=== PATIENT | female | born 1960 | race African-American/Black ===

== ENCOUNTER 2017-06-11 01:39 | Emergency (ER) | payer MEDICAID ==
[~2017-06-11] VITALS: Ht 154.9 cm; Wt 98.0 kg
[~2017-06-11 01:39] MED LIST: CYCL10TA7; HYDR-519 PO; HYDR25TA; LOP25; LORA5TAB8; MECL12.584; OMEP20TA2; PRAV20TA57; RANI25TA; TRAM50TA; TRAZ-129; [UNRECOGNIZED DRUG - CODE]
[2017-06-11] MEDS ORDERED: SODIUM CHLORIDE 0.9% 1,000 ML IV ONE (05:30)
[2017-06-11] MEDS ORDERED: ONDANSETRON HCL 4MG/2ML VIAL IV ONE ×2 (05:45→08:30)
[2017-06-11] MEDS ORDERED: MORPHINE SULFATE 4 MG/ML CPJ (NOT FOR IM USE) IV ONE (05:45)
[2017-06-11 06:03] LABS: BASOPHILS % 1.2 % (0.0-2.0); EOSINOPHILS % 2.6 % (0.0-5.0); HEMATOCRIT. 38.8 % (36.0-48.0); HEMOGLOBIN. 12.7 g/dL (12.0-16.0); LYMPHOCYTES % 43.6 % (20.0-50.0); MEAN CORPUSCULAR HEMOGLOBIN 28.4 pg (28.0-32.0); MEAN CORPUSCULAR VOLUME 86.9 fL (81.0-99.0); MEAN PLATELET VOLUME 10.3 fl (7.4-10.4); MONOCYTES % 7.1 % (2.0-8.0); NEUTROPHILS % 45.5 % (40.0-76.0); PLATELET 278 x1000/uL (130-400); RED BLOOD CELL COUNT 4.46 mill/uL (4.2-5.4); RED CELL DISTRIBUTION WIDTH 14.4 % (11.6-14.6)
[2017-06-11 06:06] LABS: PROTHROMBIN TIME 10.5 sec (9.4-11.6)
[2017-06-11 06:13] LABS: CARBON DIOXIDE 28 mEq/L (21-32); CHLORIDE 107 mEq/L (98-107)
[2017-06-11] MEDS ORDERED: PIPERACILLIN/TAZOBACTAM 3.375GM/50ML PREMIX IV ONE (08:15)
[2017-06-11] MEDS ORDERED: PIPERACILLIN/TAZ 3.375G PREMIX 50 ML IV ONE (08:15)
[2017-06-11] MEDS ORDERED: KETOROLAC 30MG/ML VIAL IV ONE (08:30)
[2017-06-11] MEDS ORDERED: ONDANSETRON HCL 4MG/2ML VIAL IM ONE (08:30)
[2017-06-11] MEDS ORDERED: LORAZEPAM 2MG/ML CPJ IV ONE (09:00)
[2017-06-11 13:49] VITALS: BP 133/80
== END 2017-06-11 13:57 | disposition home or self-care (01) ==
LOC: ER 01:39
DX: M27.2 Inflammatory conditions of jaws (principal); L02.01 Cutaneous abscess of face; J32.2 Chronic ethmoidal sinusitis; R59.0 Localized enlarged lymph nodes; K21.9 Gastro-esophageal reflux disease without esophagitis; E78.00 Pure hypercholesterolemia, unspecified; I12.9 Hypertensive chronic kidney disease with stage 1 through stage 4 chronic kidney disease, or unspecified chronic kidney disease; N18.9 Chronic kidney disease, unspecified; M79.7 Fibromyalgia; Z88.3 Allergy status to other anti-infective agents; Z91.041 Radiographic dye allergy status
CPT/HCPCS: 36415; 70486; 70540; 80053; 85025; 85610; 96361; 96374; 96375; 96376; 99285; J1885; J2060; J2270; J2405; J2543; J7030

== ENCOUNTER 2017-12-02 05:29 | Emergency (ER) | payer MEDICAID ==
[~2017-12-02] VITALS: Ht 154.9 cm; Wt 104.0 kg
[2017-12-02 05:36] VITALS: BP 161/88
[2017-12-02] MEDS ORDERED: FAMOTIDINE 20MG TABLET PO STA (08:42)
[2017-12-02] MEDS ORDERED: MAGNESIUM/ALUMINUM HYDROXIDE/SIMETHICONE 30ML UDC PO STA (08:42)
[2017-12-02] MEDS ORDERED: VISCOUS LIDOCAINE 2% 15 ML UDC MM ONE (08:45)
[2017-12-02] MEDS ORDERED: HYDROCODONE/ACETAMINOPHEN 5/325MG TABLET PO ONE (09:00)
[2017-12-02 09:17] LABS: CHLORIDE 107 mEq/L (98-107)
[2017-12-02 09:19] LABS: PARTIAL THROMBOPLASTIN TIME 27.1 sec (23.4-31.0); PROTHROMBIN TIME 10.6 sec (9.4-11.6)
[2017-12-02 09:24] LABS: BASOPHILS % 0.9 % (0.0-2.0); EOSINOPHILS % 3.1 % (0.0-5.0); HEMATOCRIT. 39.3 % (36.0-48.0); LYMPHOCYTES % 44.6 % (20.0-50.0); MEAN CORPUSCULAR HEMOGLOBIN 28.8 pg (28.0-32.0); MEAN CORPUSCULAR VOLUME 87.1 fL (81.0-99.0); MEAN PLATELET VOLUME 9.7 fl (7.4-10.4); MONOCYTES % 6.3 % (2.0-8.0); NEUTROPHILS % 45.1 % (40.0-76.0); PLATELET 310 x1000/uL (130-400); RED BLOOD CELL COUNT 4.52 mill/uL (4.2-5.4); RED CELL DISTRIBUTION WIDTH 14.7 % (11.6-14.6)
== END 2017-12-02 11:41 | disposition home or self-care (01) ==
LOC: ER 05:29
DX: K29.00 Acute gastritis without bleeding (principal); K04.7 Periapical abscess without sinus; E78.00 Pure hypercholesterolemia, unspecified; I12.9 Hypertensive chronic kidney disease with stage 1 through stage 4 chronic kidney disease, or unspecified chronic kidney disease; N18.9 Chronic kidney disease, unspecified; Z88.1 Allergy status to other antibiotic agents; Z91.041 Radiographic dye allergy status
CPT/HCPCS: 36415; 71045; 80053; 83690; 84484; 85025; 85610; 85730; 93005; 99285

== ENCOUNTER 2018-09-07 19:23 | Emergency (ER) | payer MEDICAID ==
[~2018-09-07] VITALS: Ht 160 cm; Wt 108.1 kg
[~2018-09-07 19:23] MED LIST changes: -TRAZ-129; +TRAZ-212
[2018-09-07] MEDS ORDERED: SODIUM CHLORIDE 0.9% 1,000 ML IV ONE (22:25)
[2018-09-07] MEDS ORDERED: ONDANSETRON HCL 4MG/2ML INJ IV STA (22:25)
[2018-09-07] MEDS ORDERED: MORPHINE SULFATE 4 MG/ML CPJ (NOT FOR IM USE) IV STA (22:25)
[2018-09-07] MEDS ORDERED: PIPERACILLIN/TAZ 3.375G PREMIX 50 ML IV ONE (22:30)
[2018-09-07] MEDS ORDERED: VANCOMYCIN 1 G PREMIX 200 ML IV ONE (22:30)
[2018-09-07 23:07] LABS: BASOPHILS % 0.6 % (0.0-2.0); EOSINOPHILS % 1.2 % (0.0-5.0); HEMATOCRIT. 40.2 % (36.0-48.0); HEMOGLOBIN. 13.4 g/dL (12.0-16.0); LYMPHOCYTES % 45.3 % (20.0-50.0); MEAN CORPUSCULAR HEMOGLOBIN 29.4 pg (28.0-32.0); MEAN CORPUSCULAR VOLUME 88.3 fL (81.0-99.0); MEAN PLATELET VOLUME 10.3 fl (7.4-10.4); MONOCYTES % 7.5 % (2.0-8.0); NEUTROPHILS % 45.4 % (40.0-76.0); PLATELET 307 x1000/uL (130-400); RED BLOOD CELL COUNT 4.56 mill/uL (4.2-5.4); RED CELL DISTRIBUTION WIDTH 14.5 % (11.6-14.6)
[2018-09-07 23:13] LABS: CHLORIDE 106 mEq/L (98-107)
[2018-09-07 23:15] LABS: CLARITY URINE CLEAR (CLEAR); COLOR URINE YELLOW (YELLOW); KETONES URINE NEGATIVE (NEGATIVE); LEUKOCYTE ESTERASE URINE NEGATIVE (NEGATIVE); NITRITE URINE NEGATIVE (NEGATIVE); OCCULT BLOOD URINE NEGATIVE (NEGATIVE); PH URINE 6.5 (4.5-8.0); PROTEIN URINE NEGATIVE (NEGATIVE); SPECIFIC GRAVITY URINE 1.014 (1.005-1.030); UROBILINOGEN URINE 0.2 E.U./dL (0.2-1.0)
[2018-09-07 23:16] LABS: PARTIAL THROMBOPLASTIN TIME 28.7 sec (23.4-31.0); PROTHROMBIN TIME 9.8 sec (9.1-11.1)
[2018-09-08 01:45] VITALS: BP 120/55
== END 2018-09-08 01:46 | disposition home or self-care (01) ==
LOC: ER 19:23 → CANBEDREQ 09-08 01:51
DX: N30.90 Cystitis, unspecified without hematuria (principal); I11.9 Hypertensive heart disease without heart failure; I51.9 Heart disease, unspecified; R11.0 Nausea; M54.5 Low back pain; R10.9 Unspecified abdominal pain; R35.0 Frequency of micturition; E78.00 Pure hypercholesterolemia, unspecified; N28.9 Disorder of kidney and ureter, unspecified; Z86.73 Personal history of transient ischemic attack (TIA), and cerebral infarction without residual deficits; Z98.51 Tubal ligation status; Z79.899 Other long term (current) drug therapy; Z88.1 Allergy status to other antibiotic agents; Z91.041 Radiographic dye allergy status
CPT/HCPCS: 36415; 71045; 74176; 80053; 81003; 81025; 83605; 83690; 83880; 84145; 84484; 85025; 85610; 85730; 87040; 87086; 93005; 96365; 96366; 96368; 96375; 99284; J2270; J2405; J2543; J3370; J7030; Z7610

== ENCOUNTER 2018-11-24 16:22 | Emergency (ER) | payer MEDICAID ==
[~2018-11-24] VITALS: Ht 154.9 cm; Wt 82.0 kg
[~2018-11-24 16:22] MED LIST changes: -TRAZ-212; +TRAZ-251
[2018-11-24] MEDS ORDERED: KETOROLAC 30MG/ML VIAL IM ONE (17:15)
[2018-11-24] MEDS ORDERED: HYDROCODONE/ACETAMINOPHEN 5/325MG TABLET PO ONE (18:00)
[2018-11-24 18:44] VITALS: BP 179/80
== END 2018-11-24 18:45 | disposition home or self-care (01) ==
LOC: ER 16:22
DX: K03.81 Cracked tooth (principal); E78.00 Pure hypercholesterolemia, unspecified; I10 Essential (primary) hypertension; F12.10 Cannabis abuse, uncomplicated; Z79.899 Other long term (current) drug therapy; Z88.8 Allergy status to other drugs, medicaments and biological substances; Z91.041 Radiographic dye allergy status
CPT/HCPCS: 96372; 99283; J1885

== ENCOUNTER 2019-08-21 18:07 | Inpatient (IN) | payer MEDICAID ==
[~2019-08-21] VITALS: Ht 154.9 cm; Wt 81.8 kg
[~2019-08-21 18:07] MED LIST changes: +MECL-183; -MECL12.584
[2019-08-21] MEDS ORDERED: SODIUM CHLORIDE 0.9% 1,000 ML IV ONE (19:59)
[2019-08-21] MEDS ORDERED: ONDANSETRON HCL 4MG/2ML INJ IV STA (19:59)
[2019-08-21] MEDS ORDERED: MECLIZINE 25MG TABLET PO ONE (20:00)
[2019-08-21 20:21] LABS: BASOPHILS % 1.4 % (0.0-2.0); EOSINOPHILS % 2.5 % (0.0-5.0); HEMATOCRIT. 40.4 % (36.0-48.0); HEMOGLOBIN. 13.3 g/dL (12.0-16.0); MEAN CORPUSCULAR HEMOGLOBIN 29.5 pg (28.0-32.0); MEAN CORPUSCULAR VOLUME 89.2 fL (81.0-99.0); MEAN PLATELET VOLUME 10.5 fl (7.4-10.4); MONOCYTES % 7.2 % (2.0-8.0); NEUTROPHILS % 29.9 % (40.0-76.0); PLATELET 251 x1000/uL (130-400); RED BLOOD CELL COUNT 4.53 mill/uL (4.2-5.4); RED CELL DISTRIBUTION WIDTH 14.6 % (11.6-14.6)
[2019-08-21 20:24] LABS: CHLORIDE 105 mEq/L (98-107)
[2019-08-21] MEDS ORDERED: ASPIRIN 81MG TABLET PO ONE (21:45)
[2019-08-21 23:50] VITALS: BP 141/72
[2019-08-22] VITALS: BP 142/72
[2019-08-22] MEDS ORDERED: LISI-186 PO (00:44)
[2019-08-22] MEDS ORDERED: ESCI20TA43 MT (00:47)
[2019-08-22] MEDS ORDERED: MECL-159 PO (00:49)
[2019-08-22] MEDS ORDERED: OMEP40CA12 PO (00:50)
[2019-08-22] MEDS ORDERED: PREG50CA PO (00:51)
[2019-08-22] MEDS ORDERED: BACL-141 PO (00:53)
[2019-08-22] MEDS ORDERED: ALLO300T2 PO (00:54)
[2019-08-22] MEDS ORDERED: ATOR20TA65 PO (00:55)
[2019-08-22 04:00] VITALS: BP 137/67
[2019-08-22] MEDS: OMEPRAZOLE 20MG CAPSULE EXTENDED RELEASE PO SCH (06:18)
[2019-08-22 06:34] LABS: EOSINOPHILS % 2.8 % (0.0-5.0); HEMATOCRIT. 36.5 % (36.0-48.0); HEMOGLOBIN. 12.1 g/dL (12.0-16.0); LYMPHOCYTES % 57.2 % (20.0-50.0); MEAN CORPUSCULAR HEMOGLOBIN 29.2 pg (28.0-32.0); MEAN CORPUSCULAR VOLUME 88.1 fL (81.0-99.0); MEAN PLATELET VOLUME 10.6 fl (7.4-10.4); MONOCYTES % 8.2 % (2.0-8.0); NEUTROPHILS % 30.8 % (40.0-76.0); PLATELET 215 x1000/uL (130-400); RED BLOOD CELL COUNT 4.15 mill/uL (4.2-5.4); RED CELL DISTRIBUTION WIDTH 14.5 % (11.6-14.6)
[2019-08-22 07:08] LABS: CHLORIDE 108 mEq/L (98-107)
[2019-08-22 08:00] VITALS: BP 144/62
[2019-08-22] MEDS ORDERED: ONDANSETRON HCL 4MG/2ML INJ IV PRN (08:30)
[2019-08-22] MEDS: MECLIZINE 25MG TABLET PO PRN ×2 (09:23→18:49)
[2019-08-22] MEDS: PREGABALIN 50 MG CAPSULE PO SCH ×2 (09:24→22:19)
[2019-08-22] MEDS: METOPROLOL TARTRATE 25MG TABLET PO SCH ×2 (09:24→22:20)
[2019-08-22] MEDS: HYDROCODONE/ACETAMINOPHEN 5/325MG TABLET PO PRN ×2 (09:24→18:49)
[2019-08-22] MEDS: ALLOPURINOL 100 MG TABLET PO SCH (09:25)
[2019-08-22] MEDS: LISINOPRIL 5MG TABLET PO SCH (09:25)
[2019-08-22 12:00] VITALS: BP 133/67
[2019-08-22 15:15] LABS: CLARITY URINE CLEAR (CLEAR); COLOR URINE YELLOW (YELLOW); KETONES URINE NEGATIVE (NEGATIVE); LEUKOCYTE ESTERASE URINE NEGATIVE (NEGATIVE); NITRITE URINE NEGATIVE (NEGATIVE); OCCULT BLOOD URINE NEGATIVE (NEGATIVE); PROTEIN URINE NEGATIVE (NEGATIVE); SPECIFIC GRAVITY URINE 1.004 (1.005-1.030); UROBILINOGEN URINE 0.2 E.U./dL (0.2-1.0)
[2019-08-22 15:40] LABS: *BARBITURATES SCREEN URINE NEGATIVE (NEGATIVE); *BENZODIAZEPINES SCREEN URINE NEGATIVE (NEGATIVE)
[2019-08-22 15:41] LABS: *COCAINE SCREEN URINE NEGATIVE (NEGATIVE); METHADONE URINE SCREEN NEGATIVE (NEGATIVE)
[2019-08-22 15:46] LABS: *AMPHETAMINES SCREEN URINE NEGATIVE (NEGATIVE); CANNABINOID URINE SCREEN NEGATIVE (NEGATIVE); PHENCYCLIDINE URINE SCREEN NEGATIVE (NEGATIVE)
[2019-08-22 16:00] VITALS: BP 126/68
[2019-08-22 20:00] VITALS: BP 125/64
[2019-08-22] MEDS ORDERED: BACLOFEN 10MG TABLET PO SCH (21:00)
[2019-08-22] MEDS ORDERED: ATORVASTATIN CALCIUM 20MG TABLET PO SCH (21:00)
[2019-08-23] VITALS: BP_SYST 112; BP_SYST 115; BP_SYST 116; BP_DIAS 51; BP_DIAS 65; BP_DIAS 73
[2019-08-23 04:00] VITALS: BP 102/61
[2019-08-23] MEDS: OMEPRAZOLE 20MG CAPSULE EXTENDED RELEASE PO SCH (06:05)
[2019-08-23 08:00] VITALS: BP_SYST 112; BP_SYST 133; BP_SYST 147; BP_DIAS 51; BP_DIAS 72; BP_DIAS 75
[2019-08-23] MEDS: LISINOPRIL 5MG TABLET PO SCH (08:36)
[2019-08-23] MEDS: METOPROLOL TARTRATE 25MG TABLET PO SCH (08:36)
[2019-08-23] MEDS: PREGABALIN 50 MG CAPSULE PO SCH (08:36)
[2019-08-23] MEDS: ALLOPURINOL 100 MG TABLET PO SCH (08:37)
[2019-08-23] MEDS ORDERED: ASPIRIN 81MG TABLET PO SCH (09:00)
[2019-08-23 12:00] VITALS: BP 108/51
[2019-08-23 15:09] VITALS: BP 108/51
[2019-08-25 16:47] LABS: OPIATES URINE SCREEN NEGATIVE (NEGATIVE)
== END 2019-08-23 15:58 | disposition home or self-care (01) | DRG 48 ==
LOC: ER 18:07 → 5WST 22:05 → EDBEDREQ 22:19 → EDBEDREQTM 22:19 → ENRESERV 22:25 → CANRESERV 22:25 → ENRESERV 22:31 → 5WST 08-22 00:08
PROVIDERS: ADMIT Internal Medicine; ATTEND Internal Medicine
DX: G90.8 Other disorders of autonomic nervous system (principal); E66.01 Morbid (severe) obesity due to excess calories; R07.89 Other chest pain; E11.9 Type 2 diabetes mellitus without complications; E78.00 Pure hypercholesterolemia, unspecified; E78.5 Hyperlipidemia, unspecified; I10 Essential (primary) hypertension; K21.9 Gastro-esophageal reflux disease without esophagitis; M10.9 Gout, unspecified; M79.7 Fibromyalgia; Z68.34 Body mass index [BMI] 34.0-34.9, adult; Z88.1 Allergy status to other antibiotic agents; Z91.041 Radiographic dye allergy status; Z79.899 Other long term (current) drug therapy
CPT/HCPCS: 36415; 71045; 80048; 80053; 80305; 81003; 82962; 84484; 85025; 93005; 93306; 96374; 99285; J2405; J7030; J8597

== ENCOUNTER 2019-12-27 10:26 | Emergency (ER) | payer MEDICAID ==
[~2019-12-27] VITALS: Ht 172.7 cm; Wt 100.0 kg
[~2019-12-27 10:26] MED LIST changes: +ALLO300T2 PO; +ATOR20TA65 PO; +BACL-141 PO; -CYCL10TA7; +ESCI20TA43 MT; -HYDR-519 PO; -HYDR25TA; +LISI-186 PO; -LORA5TAB8; +MECL-159 PO; -MECL-183; -OMEP20TA2; +OMEP40CA12 PO; -PRAV20TA57; +PREG50CA PO; -RANI25TA; -TRAM50TA; -TRAZ-251; -[UNRECOGNIZED DRUG - CODE]
[2019-12-27 10:47] VITALS: BP 145/74
[2019-12-27] MEDS ORDERED: KETOROLAC 30MG/ML VIAL IM ONE (11:15)
== END 2019-12-27 12:15 | disposition home or self-care (01) ==
LOC: ER 10:58
DX: J06.9 Acute upper respiratory infection, unspecified (principal); R51 Headache; I10 Essential (primary) hypertension; M79.7 Fibromyalgia; E11.9 Type 2 diabetes mellitus without complications; K21.9 Gastro-esophageal reflux disease without esophagitis; E78.00 Pure hypercholesterolemia, unspecified; Z91.041 Radiographic dye allergy status; Z88.3 Allergy status to other anti-infective agents
CPT/HCPCS: 96372; 99283; J1885

== ENCOUNTER 2020-08-17 17:46 | Emergency (ER) | payer MEDICAID ==
[~2020-08-17] VITALS: Ht 154.9 cm; Wt 230.0 kg
[~2020-08-17 17:46] MED LIST changes: +ESCI20TA37 MT; -ESCI20TA43 MT
[2020-08-17] MEDS ORDERED: ACETAMINOPHEN 325MG TABLET PO STA (18:35)
[2020-08-17] MEDS ORDERED: AMOXICILLIN/POTASSIUM CLAVULANATE 875/125MG TAB PO ONE (18:45)
[2020-08-17] MEDS ORDERED: SODIUM CHLORIDE 0.9% 1,000 ML IV ONE ×2 (18:45→21:00)
[2020-08-17] MEDS ORDERED: KETOROLAC 15MG/ML VIAL IV ONE (21:00)
[2020-08-17 21:15] LABS: BASOPHILS % 1.3 % (0.0-2.0); EOSINOPHILS % 1.6 % (0.0-5.0); HEMATOCRIT. 37.9 % (36.0-48.0); HEMOGLOBIN. 12.4 g/dL (12.0-16.0); LYMPHOCYTES % 28.1 % (20.0-50.0); MEAN CORPUSCULAR HEMOGLOBIN 30.5 pg (28.0-32.0); MEAN CORPUSCULAR VOLUME 93.3 fL (81.0-99.0); MONOCYTES % 9.4 % (2.0-8.0); NEUTROPHILS % 59.6 % (40.0-76.0); PLATELET 292 x1000/uL (130-400); RED BLOOD CELL COUNT 4.06 mill/uL (4.2-5.4)
[2020-08-17 21:22] LABS: CHLORIDE 107 mEq/L (98-107)
[2020-08-17] MEDS ORDERED: AMOX-424 MT (22:30)
[2020-08-17] MEDS ORDERED: IBUP-2029 MT (22:30)
[2020-08-18 00:30] VITALS: BP 157/69
== END 2020-08-18 00:51 | disposition home or self-care (01) ==
LOC: ER 17:46
DX: J01.90 Acute sinusitis, unspecified (principal); K04.7 Periapical abscess without sinus; R00.0 Tachycardia, unspecified; E03.9 Hypothyroidism, unspecified; I12.9 Hypertensive chronic kidney disease with stage 1 through stage 4 chronic kidney disease, or unspecified chronic kidney disease; N18.9 Chronic kidney disease, unspecified; Z87.891 Personal history of nicotine dependence; Z86.19 Personal history of other infectious and parasitic diseases; Z88.3 Allergy status to other anti-infective agents; Z91.041 Radiographic dye allergy status; Z91.011 Allergy to milk products
CPT/HCPCS: 36415; 70486; 80053; 83605; 85025; 87040; 93005; 96361; 96374; 99285; J1885; J7030

== ENCOUNTER 2020-08-20 17:02 | Inpatient (IN) | payer MEDICAID ==
[~2020-08-20] VITALS: Ht 154.9 cm; Wt 117.5 kg
[~2020-08-20 17:02] MED LIST changes: +AMOX-424 MT; +IBUP-2029 MT
[2020-08-20] MEDS ORDERED: VANCOMYCIN 1 G PREMIX 200 ML IV ONE (18:15)
[2020-08-20] MEDS ORDERED: SODIUM CHLORIDE 0.9% 1000ML BAG (SEPSIS BOLUS) IV ONE (18:15)
[2020-08-20] MEDS ORDERED: PIPERACILLIN/TAZ 3.375G PREMIX 50 ML IV ONE (18:15)
[2020-08-20 18:32] LABS: BASOPHILS % 1.5 % (0.0-2.0); HEMATOCRIT. 38.6 % (36.0-48.0); HEMOGLOBIN. 12.9 g/dL (12.0-16.0); LYMPHOCYTES % 30.7 % (20.0-50.0); MEAN CORPUSCULAR HEMOGLOBIN 30.8 pg (28.0-32.0); MEAN CORPUSCULAR VOLUME 92.5 fL (81.0-99.0); MEAN PLATELET VOLUME 9.7 fl (7.4-10.4); NEUTROPHILS % 58.8 % (40.0-76.0); PLATELET 408 x1000/uL (130-400); RED BLOOD CELL COUNT 4.18 mill/uL (4.2-5.4); RED CELL DISTRIBUTION WIDTH 15.4 % (11.6-14.6)
[2020-08-20 18:41] LABS: CHLORIDE 106 mEq/L (98-107)
[2020-08-20] MEDS ORDERED: ONDANSETRON HCL 4MG/2ML INJ IV ONE (19:45)
[2020-08-20] MEDS ORDERED: MORPHINE SULFATE 4 MG/ML CPJ (NOT FOR IM USE) IV ONE (19:45)
[2020-08-20 19:57] LABS: PROTHROMBIN TIME 10.6 sec (9.6-11.0)
[2020-08-20 20:00] VITALS: BP 136/72
[2020-08-21] VITALS: BP 147/80
[2020-08-21] MEDS ORDERED: ACETAMINOPHEN 325MG TABLET PO PRN (01:15)
[2020-08-21 04:00] VITALS: BP 120/62
[2020-08-21] MEDS: HYDROCODONE/ACETAMINOPHEN 5/325MG TABLET PO PRN ×3 (06:26→23:10)
[2020-08-21] MEDS: AMPICILLIN SOD/SULBACTAM NA 3 G in SODIUM CHLORIDE 0.9% 100 ML IV SCH ×3 (07:01→22:04)
[2020-08-21 08:00] VITALS: BP 108/78
[2020-08-21] MEDS: AMLODIPINE 10MG TABLET PO SCH (08:00)
[2020-08-21] MEDS: ENOXAPARIN 30MG/0.3ML SYR SUBCUT SCH ×2 (08:51→20:15)
[2020-08-21 09:42] LABS: BASOPHILS % 1.3 % (0.0-2.0); HEMATOCRIT. 36.8 % (36.0-48.0); HEMOGLOBIN. 11.9 g/dL (12.0-16.0); LYMPHOCYTES % 37.4 % (20.0-50.0); MEAN CORPUSCULAR HEMOGLOBIN 30.2 pg (28.0-32.0); MEAN CORPUSCULAR VOLUME 93.3 fL (81.0-99.0); MEAN PLATELET VOLUME 9.1 fl (7.4-10.4); MONOCYTES % 7.3 % (2.0-8.0); PLATELET 397 x1000/uL (130-400); RED BLOOD CELL COUNT 3.94 mill/uL (4.2-5.4); RED CELL DISTRIBUTION WIDTH 15.4 % (11.6-14.6)
[2020-08-21 09:54] LABS: CHLORIDE 108 mEq/L (98-107)
[2020-08-21 12:00] VITALS: BP 138/87
[2020-08-21] MEDS ORDERED: METOPROLOL TARTRATE 50MG TABLET PO NR (16:45)
[2020-08-21 17:46] LABS: CLARITY URINE CLEAR (CLEAR); COLOR URINE YELLOW (YELLOW); KETONES URINE TRACE (NEGATIVE); LEUKOCYTE ESTERASE URINE NEGATIVE (NEGATIVE); NITRITE URINE NEGATIVE (NEGATIVE); OCCULT BLOOD URINE NEGATIVE (NEGATIVE); PROTEIN URINE NEGATIVE (NEGATIVE); SPECIFIC GRAVITY URINE 1.027 (1.005-1.030); UROBILINOGEN URINE 0.2 E.U./dL (0.2-1.0)
[2020-08-21] MEDS: LORATADINE 10MG TABLET PO SCH (19:05)
[2020-08-21 20:00] VITALS: BP 140/86
[2020-08-21] MEDS: FLUTICASONE PROPIONATE 50MCG/SPRAY BOTTLE BOTHNSTRLS SCH (20:15)
[2020-08-21] MEDS: METOPROLOL TARTRATE 50MG TABLET PO SCH (20:16)
[2020-08-21] MEDS: DIPHENHYDRAMINE 50MG CAPSULE PO PRN (23:03)
[2020-08-22] VITALS: BP 122/71
[2020-08-22 04:00] VITALS: BP 114/67
[2020-08-22] MEDS: AMPICILLIN SOD/SULBACTAM NA 3 G in SODIUM CHLORIDE 0.9% 100 ML IV SCH ×2 (05:07→14:04)
[2020-08-22 08:00] VITALS: BP 141/63
[2020-08-22] MEDS: AMLODIPINE 10MG TABLET PO SCH (08:39)
[2020-08-22] MEDS: METOPROLOL TARTRATE 50MG TABLET PO SCH (08:39)
[2020-08-22] MEDS: LORATADINE 10MG TABLET PO SCH (08:39)
[2020-08-22] MEDS: ENOXAPARIN 30MG/0.3ML SYR SUBCUT SCH (08:40)
[2020-08-22] MEDS: FLUTICASONE PROPIONATE 50MCG/SPRAY BOTTLE BOTHNSTRLS SCH (08:41)
[2020-08-22] MEDS: DIPHENHYDRAMINE 50MG CAPSULE PO PRN (08:46)
[2020-08-22 12:00] VITALS: BP 137/77
[2020-08-22 14:14] VITALS: BP 137/77
[2020-08-22] MEDS ORDERED: HYDR-4001 PO (16:57)
== END 2020-08-22 15:03 | disposition home or self-care (01) | DRG 203 ==
LOC: ER 17:02 → MICUSO 22:21 → EDBEDREQ 22:23 → EDBEDREQSVC 22:23 → EDBEDREQTM 22:23 → 5WST 22:50
PROVIDERS: ADMIT Internal Medicine; ATTEND Internal Medicine
DX: M94.0 Chondrocostal junction syndrome [Tietze] (principal); R51.9 Headache, unspecified; R78.81 Bacteremia; K08.9 Disorder of teeth and supporting structures, unspecified; E03.9 Hypothyroidism, unspecified; E66.9 Obesity, unspecified; E87.5 Hyperkalemia; I10 Essential (primary) hypertension; Z86.16 Personal history of COVID-19; J32.9 Chronic sinusitis, unspecified; Z88.8 Allergy status to other drugs, medicaments and biological substances; Z91.041 Radiographic dye allergy status; Z91.011 Allergy to milk products; Z79.899 Other long term (current) drug therapy; Z71.3 Dietary counseling and surveillance; Z68.42 Body mass index [BMI] 45.0-49.9, adult
CPT/HCPCS: 36415; 71045; 80048; 80053; 81003; 83605; 84484; 85025; 93005; 99285; C1893; J0295; J1650; J2270; J2405; J2543; J3370; J7030; J7040; J7050; Q0163

== ENCOUNTER 2021-01-19 17:06 | Inpatient (IN) | payer MEDICAID, OTHER ==
[~2021-01-19] VITALS: Ht 172.7 cm; Wt 119.7 kg
[~2021-01-19 17:06] MED LIST changes: +HYDR-4001 PO; -OMEP40CA12 PO; +OMEP40CA20 PO
[2021-01-19] MEDS ORDERED: SODIUM CHLORIDE 0.9% 1000ML BAG (SEPSIS BOLUS) IV ONE (17:30)
[2021-01-19] MEDS ORDERED: LORAZEPAM 2MG/ML CPJ IV ONE ×2 (18:00→19:15)
[2021-01-19 18:08] LABS: BG BASE EXCESS -9.4 mmol/L (-2.0-2.0); BG DEOXYHEMOGLOBIN 2.9 % (0.0-5.0); BG FRACTION INSPIRED OXYGEN 21; BG HCO3 ACT 10.7 mmol/L (22.0-26.0); BG METHEMOGLOBIN 0.4 % (0.0-1.5); BG OXYGEN SATURATION 97.1 % (92.0-98.5); BG OXYHEMOGLOBIN 96.7 % (94.0-97.0); BG PH 7.471 (7.350-7.450); BG PO2 98.2 mmHg (75.0-100.0); BG SAMPLE SITE RIGHT RADIAL; BG TOTAL HEMOGLOBIN 15.3 g/dL (12.0-18.0); BG VENT MODE ROOM AIR
[2021-01-19] MEDS ORDERED: INSULIN REGULAR (DRIP) 100 UNITS in SODIUM CHLORIDE 0.9% 99 ML IV ONE (18:15)
[2021-01-19] MEDS ORDERED: DEXTROSE 50% WATER 50ML SYRINGE IV PRN (18:45)
[2021-01-19 18:47] LABS: BASOPHILS % 0.3 % (0.0-2.0); HEMATOCRIT. 44.1 % (36.0-48.0); LYMPHOCYTES % 9.7 % (20.0-50.0); MEAN CORPUSCULAR VOLUME 94.1 fL (81.0-99.0); MEAN PLATELET VOLUME 11.5 fl (7.4-10.4); MONOCYTES % 7.4 % (2.0-8.0); NEUTROPHILS % 82.6 % (40.0-76.0); PLATELET 291 x1000/uL (130-400); RED BLOOD CELL COUNT 4.69 mill/uL (4.2-5.4); RED CELL DISTRIBUTION WIDTH 15.5 % (11.6-14.6)
[2021-01-19 19:08] LABS: CHLORIDE 88 mEq/L (98-107)
[2021-01-19 19:09] LABS: CLARITY URINE CLEAR (CLEAR); COLOR URINE YELLOW (YELLOW); KETONES URINE 1+ (NEGATIVE); LEUKOCYTE ESTERASE URINE NEGATIVE (NEGATIVE); NITRITE URINE NEGATIVE (NEGATIVE); OCCULT BLOOD URINE 1+ (NEGATIVE); PROTEIN URINE 1+ (NEGATIVE); SPECIFIC GRAVITY URINE 1.031 (1.005-1.030); UROBILINOGEN URINE 0.2 E.U./dL (0.2-1.0)
[2021-01-19] MEDS ORDERED: PIPERACILLIN/TAZ 3.375G PREMIX 50 ML IV ONE (19:15)
[2021-01-19 19:18] LABS: BETA HYDROXYBUTYRATE 6.8 mMol/L (0.0-0.3)
[2021-01-19] MEDS: BLOOD SUGAR DIAGNOSTIC STRIP TEST SCH ×6 (19:30→23:45)
[2021-01-19] MEDS: INSULIN REGULAR (DRIP) 100 UNITS in SODIUM CHLORIDE 0.9% 99 ML IV NR ×2 (19:33→23:34)
[2021-01-19 22:30] VITALS: BP 172/88
[2021-01-19 23:00] VITALS: BP 137/74
[2021-01-19] MEDS: SODIUM CHLORIDE 0.9% 1,000 ML IV SCH (23:00)
[2021-01-19] MEDS ORDERED: ONDANSETRON HCL 4MG/2ML INJ IV PRN (23:00)
[2021-01-19] MEDS: LORAZEPAM 2MG/ML CPJ IV PRN (23:27)
[2021-01-19] MEDS: ACETAMINOPHEN 650MG SUPP PR PRN (23:28)
[2021-01-19 23:30] VITALS: BP 142/76
[2021-01-19 23:50] LABS: BASOPHILS % 0.6 % (0.0-2.0); HEMATOCRIT. 41.4 % (36.0-48.0); HEMOGLOBIN. 13.9 g/dL (12.0-16.0); LYMPHOCYTES % 14.6 % (20.0-50.0); MEAN CORPUSCULAR HEMOGLOBIN 29.9 pg (28.0-32.0); MEAN CORPUSCULAR VOLUME 89.1 fL (81.0-99.0); MEAN PLATELET VOLUME 10.9 fl (7.4-10.4); MONOCYTES % 9.5 % (2.0-8.0); NEUTROPHILS % 75.3 % (40.0-76.0); PLATELET 255 x1000/uL (130-400); RED BLOOD CELL COUNT 4.64 mill/uL (4.2-5.4); RED CELL DISTRIBUTION WIDTH 15.3 % (11.6-14.6)
[2021-01-19 23:57] LABS: CHLORIDE 110 mEq/L (98-107)
[2021-01-20] VITALS (36 sets, daily range): BP systolic 99–178; BP diastolic 46–117
[2021-01-20] MEDS: BLOOD SUGAR DIAGNOSTIC STRIP TEST SCH ×12 (00:45→20:45)
[2021-01-20] MEDS: METOPROLOL TARTRATE 5MG/5ML VIAL IV PRN ×3 (01:29→22:22)
[2021-01-20] MEDS: INSULIN REGULAR (DRIP) 100 UNITS in SODIUM CHLORIDE 0.9% 99 ML IV NR ×2 (03:09→06:40)
[2021-01-20] MEDS: LORAZEPAM 2MG/ML CPJ IV PRN ×3 (03:27→20:45)
[2021-01-20] MEDS: SODIUM CHLORIDE 0.9% 1,000 ML IV SCH ×2 (04:00→08:53)
[2021-01-20 05:45] LABS: CHLORIDE 116 mEq/L (98-107)
[2021-01-20 05:50] LABS: PHOSPHORUS 1.7 mg/dL (2.5-4.9)
[2021-01-20 06:15] LABS: BASOPHILS % 0.4 % (0.0-2.0); HEMATOCRIT. 40.9 % (36.0-48.0); HEMOGLOBIN. 13.8 g/dL (12.0-16.0); MEAN CORPUSCULAR VOLUME 89.2 fL (81.0-99.0); MONOCYTES % 6.5 % (2.0-8.0); NEUTROPHILS % 80.1 % (40.0-76.0); PLATELET 237 x1000/uL (130-400); RED BLOOD CELL COUNT 4.59 mill/uL (4.2-5.4)
[2021-01-20] MEDS: PANTOPRAZOLE SODIUM 40 MG/VIAL IV SCH (08:52)
[2021-01-20] MEDS: DEXT 5%/0.45% NACL 1000ML 1,000 ML IV SCH (10:00)
[2021-01-20] MEDS ORDERED: ENOXAPARIN 40MG/0.4ML SYR SUBCUT SCH (10:15)
[2021-01-20] MEDS ORDERED: MAGNESIUM/ALUMINUM HYDROXIDE/SIMETHICONE 30ML UDC PO PRN (10:15)
[2021-01-20] MEDS ORDERED: CLONIDINE 0.1MG TABLET PO PRN (10:15)
[2021-01-20] MEDS ORDERED: DEXTROSE 50% WATER 50ML SYRINGE IV PRN (11:00)
[2021-01-20] MEDS: ENOXAPARIN 30MG/0.3ML SYR SUBCUT SCH ×2 (11:02→20:44)
[2021-01-20] MEDS ORDERED: SODIUM PHOS,M-BASIC-D-BASIC 20 MM in DEXT 5% WATER 243.3333 ML IV ONE (11:15)
[2021-01-20] MEDS ORDERED: SODIUM PHOS,M-BASIC-D-BASIC 20 MM in DEXT 5% WATER 243.3333 ML IV NR (12:00)
[2021-01-20] MEDS: ACETAMINOPHEN 650MG SUPP PR PRN ×2 (12:18→21:12)
[2021-01-20] MEDS ORDERED: INSULIN GLARGINE UD 100 UNITS/ML SYR SUBCUT NR (13:00)
[2021-01-20 13:05] LABS: BG BASE EXCESS -2.9 mmol/L (-2.0-2.0); BG CARBOXYHEMOGLOBIN 0.3 % (0.5-1.5); BG DEOXYHEMOGLOBIN 5.3 % (0.0-5.0); BG FRACTION INSPIRED OXYGEN 21; BG HCO3 ACT 19.5 mmol/L (22.0-26.0); BG METHEMOGLOBIN 0.1 % (0.0-1.5); BG OXYGEN SATURATION 94.7 % (92.0-98.5); BG OXYHEMOGLOBIN 94.3 % (94.0-97.0); BG PCO2 28.3 mmHg (35.0-45.0); BG PH 7.456 (7.350-7.450); BG PO2 70.6 mmHg (75.0-100.0); BG SAMPLE SITE RIGHT BRACHIAL; BG TOTAL HEMOGLOBIN 15.1 g/dL (12.0-18.0); BG VENT MODE ROOM AIR
[2021-01-20] MEDS: METOPROLOL TARTRATE 25MG TABLET PO SCH ×3 (13:10→21:00)
[2021-01-20] MEDS: ACETAMINOPHEN 650MG/20.3ML UDC PO PRN (13:10)
[2021-01-20] MEDS: INSULIN LISPRO 100 UNITS/ML SUBCUT SCH ×3 (13:20→21:00)
[2021-01-20] MEDS ORDERED: PIPERACILLIN/TAZOBACTAM 3.375 G/VIAL IV SCH (14:00)
[2021-01-20] MEDS: PIPERACILLIN/TAZOBACTAM 3.375G in DEXT 5% WATER 50ML IV SCH ×2 (14:13→20:44)
[2021-01-20] MEDS ORDERED: VANCOMYCIN 2,000 MG in DEXT 5% WATER 500 ML IV NR (15:00)
[2021-01-20] MEDS: HALOPERIDOL LACTATE 5MG/ML VIAL IM PRN (22:51)
[2021-01-21] VITALS: BP 109/72
[2021-01-21] MEDS: LORAZEPAM 2MG/ML CPJ IV PRN ×3 (00:45→21:25)
[2021-01-21] MEDS: DEXT 5%/0.45% NACL 1000ML 1,000 ML IV SCH (00:58)
[2021-01-21] MEDS: PIPERACILLIN/TAZOBACTAM 3.375G in DEXT 5% WATER 50ML IV SCH ×3 (01:01→14:24)
[2021-01-21] MEDS: ACETAMINOPHEN 650MG/20.3ML UDC PO PRN ×5 (01:48→23:11)
[2021-01-21] MEDS: HALOPERIDOL LACTATE 5MG/ML VIAL IM PRN ×4 (03:13→23:11)
[2021-01-21 04:00] VITALS: BP 152/76
[2021-01-21] MEDS: BLOOD SUGAR DIAGNOSTIC STRIP TEST SCH ×6 (06:15→23:59)
[2021-01-21] MEDS: INSULIN LISPRO 100 UNITS/ML SUBCUT SCH (06:15)
[2021-01-21 07:44] LABS: CLARITY URINE TURBID (CLEAR); COLOR URINE RED (YELLOW); KETONES URINE 1+ (NEGATIVE); LEUKOCYTE ESTERASE URINE 2+ (NEGATIVE); NITRITE URINE NEGATIVE (NEGATIVE); OCCULT BLOOD URINE 3+ (NEGATIVE); PH URINE 5.5 (4.5-8.0); PROTEIN URINE 3+ (NEGATIVE); SPECIFIC GRAVITY URINE 1.024 (1.005-1.030); UROBILINOGEN URINE 0.2 E.U./dL (0.2-1.0)
[2021-01-21 08:00] VITALS: BP 128/62
[2021-01-21 08:12] LABS: *AMPHETAMINES SCREEN URINE NEGATIVE (NEGATIVE); *BARBITURATES SCREEN URINE NEGATIVE (NEGATIVE); *BENZODIAZEPINES SCREEN URINE NEGATIVE (NEGATIVE); *COCAINE SCREEN URINE NEGATIVE (NEGATIVE); METHADONE URINE SCREEN NEGATIVE (NEGATIVE); OPIATES URINE SCREEN NEGATIVE (NEGATIVE)
[2021-01-21 08:13] LABS: CANNABINOID URINE SCREEN PRESUMTIVE POSITIVE (NEGATIVE); PHENCYCLIDINE URINE SCREEN NEGATIVE (NEGATIVE)
[2021-01-21 08:16] LABS: T4 FREE 1.07 ng/dL (0.76-1.46)
[2021-01-21 09:13] LABS: BASOPHILS % 0.3 % (0.0-2.0); HEMATOCRIT. 40.1 % (36.0-48.0); MEAN CORPUSCULAR VOLUME 92.3 fL (81.0-99.0); MEAN PLATELET VOLUME 11.5 fl (7.4-10.4); MONOCYTES % 8.9 % (2.0-8.0); NEUTROPHILS % 73.8 % (40.0-76.0); PLATELET 171 x1000/uL (130-400); RED BLOOD CELL COUNT 4.34 mill/uL (4.2-5.4)
[2021-01-21] MEDS: ASPIRIN 81MG TABLET PO SCH (09:30)
[2021-01-21] MEDS: PANTOPRAZOLE SODIUM 40 MG/VIAL IV SCH (09:30)
[2021-01-21] MEDS: METOPROLOL TARTRATE 25MG TABLET PO SCH ×2 (09:30→21:25)
[2021-01-21] MEDS: ENOXAPARIN 30MG/0.3ML SYR SUBCUT SCH (09:30)
[2021-01-21] MEDS ORDERED: INSULIN GLARGINE UD 100 UNITS/ML SYR SUBCUT SCH ×3 (10:00→22:00)
[2021-01-21] MEDS ORDERED: POTASSIUM PHOS,M-BASIC-D-BASIC 30 MMOL in DEXT 5% WATER 500 ML IV NR (11:00)
[2021-01-21] MEDS: DEXTROSE 5% WATER 1,000 ML IV SCH (11:32)
[2021-01-21] MEDS ORDERED: INSULIN LISPRO 100 UNITS/ML SUBCUT SCH (12:00)
[2021-01-21 12:01] VITALS: BP 107/65
[2021-01-21] MEDS ORDERED: VANCOMYCIN 1 G PREMIX 200 ML IV SCH (13:00)
[2021-01-21] MEDS: INSULIN LISPRO (MEDIUM DOSE) 100 UNITS/ML SUBCUT SCH ×4 (14:26→23:58)
[2021-01-21] MEDS ORDERED: VANCOMYCIN 1500MG in DEXTROSE 5% WATER 250ML IV NR (15:30)
[2021-01-21] MEDS ORDERED: INSULIN GLARGINE UD 100 UNITS/ML SYR SUBCUT NR (15:30)
[2021-01-21 16:00] VITALS: BP 123/60
[2021-01-21] MEDS ORDERED: LORAZEPAM 2MG/ML CPJ IV NR (17:00)
[2021-01-21 20:00] VITALS: BP 115/62
[2021-01-21] MEDS ORDERED: PIPERACILLIN/TAZOBACTAM 2.25G in DEXTROSE 5% WATER 50ML IV SCH (21:00)
[2021-01-21] MEDS: ENOXAPARIN 40MG/0.4ML SYR SUBCUT SCH (21:25)
[2021-01-22] VITALS: BP 105/63
[2021-01-22 00:15] LABS: PHOSPHORUS 2.6 mg/dL (2.5-4.9)
[2021-01-22] MEDS: CEFTRIAXONE 2 G in DEXTROSE 5% WATER 50 ML IV SCH ×2 (00:40→12:40)
[2021-01-22] MEDS: BLOOD SUGAR DIAGNOSTIC STRIP TEST SCH ×5 (03:55→20:00)
[2021-01-22] MEDS: INSULIN LISPRO (MEDIUM DOSE) 100 UNITS/ML SUBCUT SCH ×4 (03:57→16:57)
[2021-01-22 04:00] VITALS: BP 125/75
[2021-01-22] MEDS: LORAZEPAM 2MG/ML CPJ IV PRN ×4 (05:59→21:14)
[2021-01-22 07:13] LABS: BASOPHILS % 0.4 % (0.0-2.0); HEMATOCRIT. 37.3 % (36.0-48.0); HEMOGLOBIN. 11.9 g/dL (12.0-16.0); LYMPHOCYTES % 14.2 % (20.0-50.0); MEAN CORPUSCULAR HEMOGLOBIN 29.5 pg (28.0-32.0); MEAN CORPUSCULAR VOLUME 92.7 fL (81.0-99.0); MEAN PLATELET VOLUME 12.5 fl (7.4-10.4); MONOCYTES % 6.6 % (2.0-8.0); NEUTROPHILS % 78.8 % (40.0-76.0); PLATELET 147 x1000/uL (130-400); RED BLOOD CELL COUNT 4.02 mill/uL (4.2-5.4); RED CELL DISTRIBUTION WIDTH 15.8 % (11.6-14.6)
[2021-01-22 07:16] LABS: PHOSPHORUS 2.7 mg/dL (2.5-4.9)
[2021-01-22 07:34] LABS: HEPATITIS B SURFACE ANTIGEN NEGATIVE
[2021-01-22] MEDS: HALOPERIDOL LACTATE 5MG/ML VIAL IM PRN ×3 (07:48→18:37)
[2021-01-22 08:00] VITALS: BP 145/56
[2021-01-22] MEDS: FAMOTIDINE 20MG/2ML VIAL IV SCH (08:55)
[2021-01-22] MEDS: METOPROLOL TARTRATE 25MG TABLET PO SCH ×2 (08:55→21:00)
[2021-01-22] MEDS ORDERED: CEFTRIAXONE 2 G PREMIX 50 ML IV SCH (09:00)
[2021-01-22] MEDS: ASPIRIN 81MG TABLET PO SCH (09:12)
[2021-01-22] MEDS: INSULIN GLARGINE UD 100 UNITS/ML SYR SUBCUT SCH ×2 (10:23→21:13)
[2021-01-22 12:00] VITALS: BP 105/65
[2021-01-22] MEDS: DIPHENHYDRAMINE 50MG/ML VIAL IV PRN (15:38)
[2021-01-22] MEDS: ACETAMINOPHEN 650MG/20.3ML UDC PO PRN (18:37)
[2021-01-22] MEDS: THIAMINE HCL 100MG TABLET PO SCH (18:48)
[2021-01-22 19:46] VITALS: BP 140/95
[2021-01-22 20:00] VITALS: BP 106/74
[2021-01-22] MEDS ORDERED: INSULIN LISPRO 100 UNITS/ML SUBCUT SCH (20:00)
[2021-01-22] MEDS: ENOXAPARIN 40MG/0.4ML SYR SUBCUT SCH (21:11)
[2021-01-22] MEDS: INSULIN LISPRO (LOW DOSE) 100 UNITS/ML SUBCUT SCH (21:12)
[2021-01-22] MEDS: INSULIN LISPRO 100 UNITS/ML SUBCUT SCH (21:13)
[2021-01-23] VITALS: BP 122/69
[2021-01-23] MEDS: INSULIN LISPRO (LOW DOSE) 100 UNITS/ML SUBCUT SCH ×6 (00:06→20:00)
[2021-01-23] MEDS: INSULIN LISPRO 100 UNITS/ML SUBCUT SCH ×6 (00:07→20:52)
[2021-01-23] MEDS: CEFTRIAXONE 2 G in DEXTROSE 5% WATER 50 ML IV SCH ×2 (00:12→12:48)
[2021-01-23] MEDS: BLOOD SUGAR DIAGNOSTIC STRIP TEST SCH ×6 (00:52→20:47)
[2021-01-23] MEDS: LORAZEPAM 2MG/ML CPJ IV PRN ×2 (02:08→13:55)
[2021-01-23] MEDS: HALOPERIDOL LACTATE 5MG/ML VIAL IM PRN ×2 (03:16→17:39)
[2021-01-23 04:00] VITALS: BP 112/71
[2021-01-23] MEDS: ACETAMINOPHEN 650MG/20.3ML UDC PO PRN ×2 (04:49→09:17)
[2021-01-23 07:19] LABS: BASOPHILS % 0.4 % (0.0-2.0); EOSINOPHILS % 0.3 % (0.0-5.0); HEMATOCRIT. 35.7 % (36.0-48.0); HEMOGLOBIN. 11.7 g/dL (12.0-16.0); LYMPHOCYTES % 13.3 % (20.0-50.0); MEAN CORPUSCULAR HEMOGLOBIN 29.8 pg (28.0-32.0); MEAN CORPUSCULAR VOLUME 90.6 fL (81.0-99.0); MEAN PLATELET VOLUME 12.3 fl (7.4-10.4); PLATELET 183 x1000/uL (130-400); RED BLOOD CELL COUNT 3.93 mill/uL (4.2-5.4); RED CELL DISTRIBUTION WIDTH 15.9 % (11.6-14.6)
[2021-01-23 08:00] VITALS: BP 114/59
[2021-01-23] MEDS: THIAMINE HCL 100MG TABLET PO SCH (08:45)
[2021-01-23] MEDS: ASPIRIN 81MG TABLET PO SCH (08:46)
[2021-01-23] MEDS: FAMOTIDINE 20MG/2ML VIAL IV SCH (08:46)
[2021-01-23] MEDS: METOPROLOL TARTRATE 25MG TABLET PO SCH ×2 (08:46→20:50)
[2021-01-23] MEDS: DEXTROSE 5% WATER 1,000 ML IV SCH (09:15)
[2021-01-23] MEDS: INSULIN GLARGINE UD 100 UNITS/ML SYR SUBCUT SCH ×2 (11:30→20:53)
[2021-01-23] MEDS: SODIUM CHLORIDE 0.45% 1,000 ML IV SCH ×2 (11:31→20:57)
[2021-01-23 12:00] VITALS: BP 122/100
[2021-01-23] MEDS ORDERED: VANCOMYCIN 1250MG in DEXTROSE 5% WATER 250ML IV SCH (13:00)
[2021-01-23 16:00] VITALS: BP 110/71
[2021-01-23 20:00] VITALS: BP 102/50
[2021-01-23] MEDS: ENOXAPARIN 40MG/0.4ML SYR SUBCUT SCH (20:53)
[2021-01-24] VITALS: BP 95/43
[2021-01-24] MEDS: BLOOD SUGAR DIAGNOSTIC STRIP TEST SCH ×6 (00:32→20:00)
[2021-01-24] MEDS: LORAZEPAM 2MG/ML CPJ IV PRN ×4 (00:34→18:30)
[2021-01-24] MEDS: ACETAMINOPHEN 650MG/20.3ML UDC PO PRN (00:50)
[2021-01-24] MEDS: CEFTRIAXONE 2 G in DEXTROSE 5% WATER 50 ML IV SCH ×2 (02:34→13:28)
[2021-01-24 04:00] VITALS: BP 104/47
[2021-01-24] MEDS: INSULIN LISPRO (LOW DOSE) 100 UNITS/ML SUBCUT SCH ×6 (04:59→21:44)
[2021-01-24] MEDS: INSULIN LISPRO 100 UNITS/ML SUBCUT SCH ×6 (05:00→21:45)
[2021-01-24] MEDS: SODIUM CHLORIDE 0.45% 1,000 ML IV SCH ×3 (05:23→18:35)
[2021-01-24 06:26] LABS: BASOPHILS % 0.3 % (0.0-2.0); EOSINOPHILS % 0.7 % (0.0-5.0); HEMATOCRIT. 33.2 % (36.0-48.0); HEMOGLOBIN. 10.6 g/dL (12.0-16.0); LYMPHOCYTES % 16.7 % (20.0-50.0); MEAN CORPUSCULAR HEMOGLOBIN 29.8 pg (28.0-32.0); MEAN CORPUSCULAR VOLUME 93.3 fL (81.0-99.0); MEAN PLATELET VOLUME 12.7 fl (7.4-10.4); MONOCYTES % 5.9 % (2.0-8.0); NEUTROPHILS % 76.4 % (40.0-76.0); PLATELET 181 x1000/uL (130-400); RED BLOOD CELL COUNT 3.55 mill/uL (4.2-5.4); RED CELL DISTRIBUTION WIDTH 16.1 % (11.6-14.6)
[2021-01-24 06:27] LABS: CHLORIDE 124 mEq/L (98-107)
[2021-01-24 06:48] LABS: PHOSPHORUS 3.3 mg/dL (2.5-4.9)
[2021-01-24 08:00] VITALS: BP 120/60
[2021-01-24] MEDS: THIAMINE HCL 100MG TABLET PO SCH (09:04)
[2021-01-24] MEDS: FAMOTIDINE 20MG/2ML VIAL IV SCH (09:05)
[2021-01-24] MEDS: METOPROLOL TARTRATE 25MG TABLET PO SCH ×2 (09:07→21:42)
[2021-01-24] MEDS: ASPIRIN 81MG TABLET PO SCH (09:11)
[2021-01-24] MEDS: INSULIN GLARGINE UD 100 UNITS/ML SYR SUBCUT SCH ×2 (10:03→21:43)
[2021-01-24 12:00] VITALS: BP 120/54
[2021-01-24] MEDS: HALOPERIDOL LACTATE 5MG/ML VIAL IM PRN (13:17)
[2021-01-24 16:00] VITALS: BP 117/54
[2021-01-24 20:00] VITALS: BP 125/58
[2021-01-24] MEDS: ENOXAPARIN 40MG/0.4ML SYR SUBCUT SCH (21:42)
[2021-01-25] VITALS: BP 100/65
[2021-01-25] MEDS: CEFTRIAXONE 2 G in DEXTROSE 5% WATER 50 ML IV SCH ×3 (00:15→23:54)
[2021-01-25] MEDS: LORAZEPAM 2MG/ML CPJ IV PRN ×4 (00:15→23:54)
[2021-01-25] MEDS: HALOPERIDOL LACTATE 5MG/ML VIAL IM PRN ×3 (00:15→19:46)
[2021-01-25] MEDS: ACETAMINOPHEN 650MG/20.3ML UDC PO PRN (00:17)
[2021-01-25] MEDS: BLOOD SUGAR DIAGNOSTIC STRIP TEST SCH ×7 (00:29→23:55)
[2021-01-25] MEDS: SODIUM CHLORIDE 0.45% 1,000 ML IV SCH ×3 (02:04→18:27)
[2021-01-25 04:00] VITALS: BP_SYST 86; BP_SYST 97; BP_DIAS 44; BP_DIAS 49
[2021-01-25] MEDS: INSULIN LISPRO 100 UNITS/ML SUBCUT SCH ×7 (04:20→23:55)
[2021-01-25] MEDS: INSULIN LISPRO (LOW DOSE) 100 UNITS/ML SUBCUT SCH ×6 (04:20→20:55)
[2021-01-25 08:00] VITALS: BP 140/80
[2021-01-25] MEDS: FAMOTIDINE 20MG/2ML VIAL IV SCH (08:44)
[2021-01-25] MEDS: THIAMINE HCL 100MG TABLET PO SCH (08:44)
[2021-01-25] MEDS: ASPIRIN 81MG TABLET PO SCH (08:44)
[2021-01-25] MEDS: METOPROLOL TARTRATE 25MG TABLET PO SCH ×2 (08:45→21:00)
[2021-01-25 09:01] LABS: BASOPHILS % 0.7 % (0.0-2.0); EOSINOPHILS % 1.1 % (0.0-5.0); HEMATOCRIT. 30.3 % (36.0-48.0); HEMOGLOBIN. 9.8 g/dL (12.0-16.0); LYMPHOCYTES % 15.3 % (20.0-50.0); MEAN CORPUSCULAR HEMOGLOBIN 29.9 pg (28.0-32.0); MEAN CORPUSCULAR VOLUME 92.4 fL (81.0-99.0); MEAN PLATELET VOLUME 12.2 fl (7.4-10.4); NEUTROPHILS % 76.9 % (40.0-76.0); PLATELET 227 x1000/uL (130-400); RED BLOOD CELL COUNT 3.28 mill/uL (4.2-5.4); RED CELL DISTRIBUTION WIDTH 15.6 % (11.6-14.6)
[2021-01-25 12:00] VITALS: BP 95/62
[2021-01-25] MEDS ORDERED: VANCOMYCIN 1250MG in DEXTROSE 5% WATER 250ML IV NR (12:00)
[2021-01-25] MEDS: INSULIN GLARGINE UD 100 UNITS/ML SYR SUBCUT SCH ×2 (12:15→20:50)
[2021-01-25 20:00] VITALS: BP 104/51
[2021-01-25] MEDS: ENOXAPARIN 40MG/0.4ML SYR SUBCUT SCH (20:49)
[2021-01-25 21:54] LABS: CREATINE KINASE 2025 IU/L (26-192)
[2021-01-26] VITALS: BP 117/52
[2021-01-26] MEDS: DIPHENHYDRAMINE 50MG/ML VIAL IV PRN ×3 (01:42→23:40)
[2021-01-26] MEDS: SODIUM CHLORIDE 0.45% 1,000 ML IV SCH (03:00)
[2021-01-26 04:00] VITALS: BP 97/49
[2021-01-26] MEDS: INSULIN LISPRO (LOW DOSE) 100 UNITS/ML SUBCUT SCH ×2 (04:00)
[2021-01-26] MEDS: BLOOD SUGAR DIAGNOSTIC STRIP TEST SCH ×4 (04:04→23:33)
[2021-01-26] MEDS: INSULIN LISPRO 100 UNITS/ML SUBCUT SCH ×8 (04:04→23:43)
[2021-01-26] MEDS: ACETAMINOPHEN 650MG/20.3ML UDC PO PRN ×3 (05:07→23:40)
[2021-01-26 08:00] VITALS: BP 89/50
[2021-01-26 08:00] LABS: BASOPHILS % 1.1 % (0.0-2.0); EOSINOPHILS % 1.5 % (0.0-5.0); HEMATOCRIT. 28.3 % (36.0-48.0); HEMOGLOBIN. 9.3 g/dL (12.0-16.0); LYMPHOCYTES % 19.6 % (20.0-50.0); MEAN CORPUSCULAR VOLUME 91.9 fL (81.0-99.0); MEAN PLATELET VOLUME 11.5 fl (7.4-10.4); MONOCYTES % 6.5 % (2.0-8.0); NEUTROPHILS % 71.3 % (40.0-76.0); PLATELET 277 x1000/uL (130-400); RED BLOOD CELL COUNT 3.08 mill/uL (4.2-5.4)
[2021-01-26 08:06] LABS: PHOSPHORUS 3.6 mg/dL (2.5-4.9)
[2021-01-26] MEDS: METOPROLOL TARTRATE 25MG TABLET PO SCH ×2 (09:00→20:28)
[2021-01-26] MEDS: THIAMINE HCL 100MG TABLET PO SCH (09:56)
[2021-01-26] MEDS: FAMOTIDINE 20MG/2ML VIAL IV SCH (09:56)
[2021-01-26] MEDS: ASPIRIN 81MG TABLET PO SCH (09:56)
[2021-01-26] MEDS: DEXTROSE 5% WATER 1,000 ML IV SCH ×3 (09:57→23:48)
[2021-01-26] MEDS: INSULIN GLARGINE UD 100 UNITS/ML SYR SUBCUT SCH ×2 (09:58→23:41)
[2021-01-26] MEDS ORDERED: LIDOCAINE HCL 1% 20ML VIAL (Pyxis) INJ ONE (10:55)
[2021-01-26] MEDS: LORAZEPAM 2MG/ML CPJ IV PRN (11:30)
[2021-01-26 12:00] VITALS: BP 112/55
[2021-01-26] MEDS: CEFTRIAXONE 2 G in DEXTROSE 5% WATER 50 ML IV SCH (13:16)
[2021-01-26 16:00] VITALS: BP 103/61
[2021-01-26] MEDS: AMPICILLIN 2,000 MG in SODIUM CHLORIDE 0.9% 100 ML IV SCH (16:29)
[2021-01-26 20:00] VITALS: BP 94/42
[2021-01-26] MEDS: ENOXAPARIN 40MG/0.4ML SYR SUBCUT SCH (21:34)
[2021-01-27] VITALS: BP 120/66
[2021-01-27] MEDS: CEFTRIAXONE 2 G in DEXTROSE 5% WATER 50 ML IV SCH ×2 (00:23→13:50)
[2021-01-27] MEDS: HALOPERIDOL LACTATE 5MG/ML VIAL IM PRN ×2 (03:12→10:39)
[2021-01-27 04:00] VITALS: BP 127/64
[2021-01-27] MEDS: AMPICILLIN 2,000 MG in SODIUM CHLORIDE 0.9% 100 ML IV SCH ×2 (05:18→18:50)
[2021-01-27] MEDS: BLOOD SUGAR DIAGNOSTIC STRIP TEST SCH ×3 (06:49→18:27)
[2021-01-27] MEDS: INSULIN LISPRO 100 UNITS/ML SUBCUT SCH ×6 (07:04→23:03)
[2021-01-27 08:00] VITALS: BP 151/67
[2021-01-27 09:24] LABS: HEMATOCRIT. 27.7 % (36.0-48.0); HEMOGLOBIN. 9.1 g/dL (12.0-16.0); MEAN CORPUSCULAR HEMOGLOBIN 30.4 pg (28.0-32.0); MEAN CORPUSCULAR VOLUME 92.7 fL (81.0-99.0); MEAN PLATELET VOLUME 10.5 fl (7.4-10.4); PLATELET 341 x1000/uL (130-400); RED BLOOD CELL COUNT 2.99 mill/uL (4.2-5.4); RED CELL DISTRIBUTION WIDTH 15.3 % (11.6-14.6)
[2021-01-27] MEDS: FAMOTIDINE 20MG/2ML VIAL IV SCH (10:38)
[2021-01-27] MEDS: LORAZEPAM 2MG/ML CPJ IV PRN (10:39)
[2021-01-27] MEDS: METOPROLOL TARTRATE 25MG TABLET PO SCH ×2 (10:39→21:47)
[2021-01-27] MEDS: THIAMINE HCL 100MG TABLET PO SCH (10:39)
[2021-01-27] MEDS: ASPIRIN 81MG TABLET PO SCH (10:39)
[2021-01-27] MEDS: DIPHENHYDRAMINE 50MG/ML VIAL IV PRN (11:09)
[2021-01-27] MEDS: INSULIN GLARGINE UD 100 UNITS/ML SYR SUBCUT SCH ×2 (11:10→23:03)
[2021-01-27 12:00] VITALS: BP 136/76
[2021-01-27] MEDS ORDERED: VANCOMYCIN 1250MG in DEXTROSE 5% WATER 250ML IV SCH (15:00)
[2021-01-27] MEDS: DEXTROSE 5% WATER 1,000 ML IV SCH (15:33)
[2021-01-27 16:00] VITALS: BP 100/59
[2021-01-27 16:17] LABS: PLATELET ESTIMATE NORMAL
[2021-01-27 20:00] VITALS: BP 127/61
[2021-01-27] MEDS ORDERED: DEXTROSE 50% WATER 50ML SYRINGE IV PRN ×2 (21:15)
[2021-01-27] MEDS: ENOXAPARIN 40MG/0.4ML SYR SUBCUT SCH (21:48)
[2021-01-27] MEDS: ACETAMINOPHEN 650MG/20.3ML UDC PO PRN (21:49)
[2021-01-27] MEDS ORDERED: INSULIN LISPRO 100 UNITS/ML SUBCUT ONE (22:45)
[2021-01-28 00:53] VITALS: BP 97/45
[2021-01-28 04:00] VITALS: BP 136/63
[2021-01-28] MEDS: DEXTROSE 5% WATER 1,000 ML IV SCH ×2 (04:28→18:01)
[2021-01-28] MEDS: CEFTRIAXONE 2 G in DEXTROSE 5% WATER 50 ML IV SCH ×2 (04:28→14:26)
[2021-01-28] MEDS: INSULIN LISPRO 100 UNITS/ML SUBCUT SCH ×3 (06:13→18:24)
[2021-01-28] MEDS: AMPICILLIN 2,000 MG in SODIUM CHLORIDE 0.9% 100 ML IV SCH ×2 (06:29→17:59)
[2021-01-28 06:35] LABS: HEMATOCRIT. 27.8 % (36.0-48.0); HEMOGLOBIN. 9.1 g/dL (12.0-16.0); MEAN CORPUSCULAR HEMOGLOBIN 30.7 pg (28.0-32.0); MEAN CORPUSCULAR VOLUME 94.3 fL (81.0-99.0); PLATELET 345 x1000/uL (130-400); RED BLOOD CELL COUNT 2.95 mill/uL (4.2-5.4); RED CELL DISTRIBUTION WIDTH 15.9 % (11.6-14.6)
[2021-01-28] MEDS ORDERED: BLOOD SUGAR DIAGNOSTIC STRIP TEST SCH (07:10)
[2021-01-28] MEDS ORDERED: INSULIN LISPRO 100 UNITS/ML SUBCUT SCH ×2 (07:40→12:00)
[2021-01-28 08:00] VITALS: BP 147/70
[2021-01-28] MEDS: ASPIRIN 81MG TABLET PO SCH (09:00)
[2021-01-28] MEDS: THIAMINE HCL 100MG TABLET PO SCH (09:36)
[2021-01-28] MEDS: METOPROLOL TARTRATE 25MG TABLET PO SCH ×2 (09:36→21:13)
[2021-01-28] MEDS: FAMOTIDINE 20MG/2ML VIAL IV SCH (09:37)
[2021-01-28] MEDS: INSULIN GLARGINE UD 100 UNITS/ML SYR SUBCUT SCH ×2 (09:37→22:28)
[2021-01-28] MEDS: HALOPERIDOL LACTATE 5MG/ML VIAL IM PRN (09:47)
[2021-01-28] MEDS: LORAZEPAM 2MG/ML CPJ IV PRN ×2 (09:47→23:04)
[2021-01-28] MEDS: DIPHENHYDRAMINE 50MG/ML VIAL IV PRN (09:48)
[2021-01-28 12:00] VITALS: BP 156/78
[2021-01-28] MEDS: BLOOD SUGAR DIAGNOSTIC STRIP TEST SCH ×2 (12:00→17:53)
[2021-01-28] MEDS: INSULIN LISPRO (LOW DOSE) 100 UNITS/ML SUBCUT SCH ×3 (14:43→18:02)
[2021-01-28] MEDS ORDERED: VANCOMYCIN 1250MG in DEXTROSE 5% WATER 250ML IV NR (15:00)
[2021-01-28 16:00] VITALS: BP 134/63
[2021-01-28] MEDS: THIAMINE HCL 200 MG in SODIUM CHLORIDE 0.9% 98 ML IV SCH (17:59)
[2021-01-28 20:00] VITALS: BP 113/55
[2021-01-28] MEDS: ENOXAPARIN 30MG/0.3ML SYR SUBCUT SCH (21:15)
[2021-01-29] VITALS: BP 113/49
[2021-01-29] MEDS: BLOOD SUGAR DIAGNOSTIC STRIP TEST SCH ×5 (00:07→23:58)
[2021-01-29] MEDS: INSULIN LISPRO (LOW DOSE) 100 UNITS/ML SUBCUT SCH ×5 (00:30→23:57)
[2021-01-29] MEDS: INSULIN LISPRO 100 UNITS/ML SUBCUT SCH ×5 (00:31→23:58)
[2021-01-29] MEDS: CEFTRIAXONE 2 G in DEXTROSE 5% WATER 50 ML IV SCH ×2 (00:35→13:18)
[2021-01-29 04:00] VITALS: BP 137/75
[2021-01-29] MEDS: ACETAMINOPHEN 650MG/20.3ML UDC PO PRN ×2 (04:29→09:38)
[2021-01-29] MEDS: AMPICILLIN 2,000 MG in SODIUM CHLORIDE 0.9% 100 ML IV SCH ×2 (06:29→18:11)
[2021-01-29 08:00] VITALS: BP 137/72
[2021-01-29] MEDS: DEXTROSE 5% WATER 1,000 ML IV SCH ×2 (09:38→18:11)
[2021-01-29] MEDS: METOPROLOL TARTRATE 25MG TABLET PO SCH ×2 (09:38→21:00)
[2021-01-29] MEDS: FAMOTIDINE 20MG/2ML VIAL IV SCH (09:38)
[2021-01-29] MEDS: ENOXAPARIN 30MG/0.3ML SYR SUBCUT SCH ×2 (09:39→21:03)
[2021-01-29 09:42] LABS: CHLORIDE 117 mEq/L (98-107)
[2021-01-29 09:48] LABS: PHOSPHORUS 3.7 mg/dL (2.5-4.9)
[2021-01-29 09:59] LABS: BASOPHILS % 0.5 % (0.0-2.0); HEMATOCRIT. 26.7 % (36.0-48.0); HEMOGLOBIN. 8.7 g/dL (12.0-16.0); LYMPHOCYTES % 23.9 % (20.0-50.0); MEAN CORPUSCULAR HEMOGLOBIN 30.2 pg (28.0-32.0); MEAN CORPUSCULAR VOLUME 92.2 fL (81.0-99.0); MEAN PLATELET VOLUME 10.1 fl (7.4-10.4); MONOCYTES % 7.8 % (2.0-8.0); NEUTROPHILS % 66.8 % (40.0-76.0); PLATELET 404 x1000/uL (130-400); RED BLOOD CELL COUNT 2.89 mill/uL (4.2-5.4); RED CELL DISTRIBUTION WIDTH 15.7 % (11.6-14.6)
[2021-01-29] MEDS: INSULIN GLARGINE UD 100 UNITS/ML SYR SUBCUT SCH ×2 (10:09→22:00)
[2021-01-29] MEDS ORDERED: POTASSIUM CHLORIDE 20MEQ/PACKET PO NR (10:45)
[2021-01-29 12:00] VITALS: BP 135/74
[2021-01-29 16:00] VITALS: BP 148/80
[2021-01-29] MEDS: VANCOMYCIN 1250MG in DEXTROSE 5% WATER 250ML IV SCH (16:55)
[2021-01-29] MEDS: THIAMINE HCL 200 MG in SODIUM CHLORIDE 0.9% 98 ML IV SCH (18:11)
[2021-01-29 18:59] LABS: PLATELET ESTIMATE NORMAL
[2021-01-29] MEDS: HALOPERIDOL LACTATE 5MG/ML VIAL IM PRN (21:41)
[2021-01-30] VITALS: BP 144/97
[2021-01-30] MEDS: CEFTRIAXONE 2 G in DEXTROSE 5% WATER 50 ML IV SCH ×2 (02:44→15:40)
[2021-01-30 04:00] VITALS: BP 160/93
[2021-01-30] MEDS: AMPICILLIN 2,000 MG in SODIUM CHLORIDE 0.9% 100 ML IV SCH ×2 (05:50→17:57)
[2021-01-30] MEDS: INSULIN LISPRO (LOW DOSE) 100 UNITS/ML SUBCUT SCH ×4 (06:00→23:49)
[2021-01-30] MEDS: INSULIN LISPRO 100 UNITS/ML SUBCUT SCH ×4 (06:00→23:53)
[2021-01-30] MEDS: BLOOD SUGAR DIAGNOSTIC STRIP TEST SCH ×4 (06:53→23:49)
[2021-01-30 07:13] LABS: BASOPHILS % 0.5 % (0.0-2.0); EOSINOPHILS % 0.7 % (0.0-5.0); HEMATOCRIT. 28.2 % (36.0-48.0); HEMOGLOBIN. 9.1 g/dL (12.0-16.0); LYMPHOCYTES % 24.8 % (20.0-50.0); MONOCYTES % 7.9 % (2.0-8.0); NEUTROPHILS % 66.1 % (40.0-76.0); PLATELET 443 x1000/uL (130-400); RED BLOOD CELL COUNT 3.04 mill/uL (4.2-5.4); RED CELL DISTRIBUTION WIDTH 15.5 % (11.6-14.6)
[2021-01-30 07:37] LABS: PHOSPHORUS 3.4 mg/dL (2.5-4.9)
[2021-01-30 08:00] VITALS: BP 129/66
[2021-01-30] MEDS: METOPROLOL TARTRATE 25MG TABLET PO SCH ×2 (09:35→21:39)
[2021-01-30] MEDS: FAMOTIDINE 20MG/2ML VIAL IV SCH (09:35)
[2021-01-30] MEDS: LORAZEPAM 2MG/ML CPJ IV PRN (09:36)
[2021-01-30] MEDS: ENOXAPARIN 30MG/0.3ML SYR SUBCUT SCH ×2 (09:38→21:38)
[2021-01-30] MEDS: INSULIN GLARGINE UD 100 UNITS/ML SYR SUBCUT SCH ×2 (09:54→21:37)
[2021-01-30] MEDS ORDERED: MAGNESIUM 2 G PREMIX 50 ML IV NR (10:00)
[2021-01-30 12:00] VITALS: BP 126/73
[2021-01-30] MEDS: DEXTROSE 5% WATER 1,000 ML IV SCH ×3 (12:36→21:39)
[2021-01-30 13:25] LABS: CREATINE KINASE 398 IU/L (26-192)
[2021-01-30 16:00] VITALS: BP 130/63
[2021-01-30] MEDS: VANCOMYCIN 1250MG in DEXTROSE 5% WATER 250ML IV SCH (16:55)
[2021-01-30] MEDS: THIAMINE HCL 200 MG in SODIUM CHLORIDE 0.9% 98 ML IV SCH (17:49)
[2021-01-30 20:00] VITALS: BP 136/67
[2021-01-31] VITALS: BP 137/79
[2021-01-31 04:00] VITALS: BP 151/77
[2021-01-31] MEDS: DEXTROSE 5% WATER 1,000 ML IV SCH ×3 (05:13→21:29)
[2021-01-31] MEDS: AMPICILLIN 2,000 MG in SODIUM CHLORIDE 0.9% 100 ML IV SCH ×2 (05:32→18:30)
[2021-01-31] MEDS: BLOOD SUGAR DIAGNOSTIC STRIP TEST SCH ×4 (05:32→21:30)
[2021-01-31] MEDS: INSULIN LISPRO (LOW DOSE) 100 UNITS/ML SUBCUT SCH ×3 (05:32→17:10)
[2021-01-31] MEDS: INSULIN LISPRO 100 UNITS/ML SUBCUT SCH ×3 (05:33→17:10)
[2021-01-31 06:21] LABS: BASOPHILS % 0.8 % (0.0-2.0); EOSINOPHILS % 1.1 % (0.0-5.0); HEMATOCRIT. 28.3 % (36.0-48.0); HEMOGLOBIN. 9.1 g/dL (12.0-16.0); LYMPHOCYTES % 26.9 % (20.0-50.0); MEAN CORPUSCULAR HEMOGLOBIN 30.3 pg (28.0-32.0); MEAN CORPUSCULAR VOLUME 93.7 fL (81.0-99.0); MEAN PLATELET VOLUME 9.9 fl (7.4-10.4); MONOCYTES % 6.6 % (2.0-8.0); NEUTROPHILS % 64.6 % (40.0-76.0); PLATELET 472 x1000/uL (130-400); RED BLOOD CELL COUNT 3.02 mill/uL (4.2-5.4); RED CELL DISTRIBUTION WIDTH 15.5 % (11.6-14.6)
[2021-01-31 07:08] LABS: PHOSPHORUS 4.1 mg/dL (2.5-4.9)
[2021-01-31 08:00] VITALS: BP 114/66
[2021-01-31] MEDS: FAMOTIDINE 20MG/2ML VIAL IV SCH (09:39)
[2021-01-31] MEDS: METOPROLOL TARTRATE 25MG TABLET PO SCH ×2 (09:39→21:31)
[2021-01-31] MEDS: ENOXAPARIN 30MG/0.3ML SYR SUBCUT SCH ×2 (09:39→21:31)
[2021-01-31] MEDS: INSULIN GLARGINE UD 100 UNITS/ML SYR SUBCUT SCH ×2 (10:00→21:30)
[2021-01-31 12:00] VITALS: BP 145/78
[2021-01-31] MEDS ORDERED: INSULIN LISPRO 100 UNITS/ML SUBCUT SCH (12:10)
[2021-01-31] MEDS ORDERED: KCL 10MEQ/50ML PREMIX 50 ML IV SCH (13:00)
[2021-01-31] MEDS: VANCOMYCIN 1250MG in DEXTROSE 5% WATER 250ML IV SCH (15:54)
[2021-01-31] MEDS: CALAMINE LOTION 120ML TOP SCH (15:54)
[2021-01-31 16:00] VITALS: BP 129/65
[2021-01-31] MEDS: THIAMINE HCL 200 MG in SODIUM CHLORIDE 0.9% 98 ML IV SCH (18:29)
[2021-01-31 20:00] VITALS: BP 121/61
[2021-01-31] MEDS: LORAZEPAM 2MG/ML CPJ IV PRN (21:51)
[2021-01-31] MEDS: HALOPERIDOL LACTATE 5MG/ML VIAL IM PRN (22:46)
[2021-01-31] MEDS: DIPHENHYDRAMINE 50MG/ML VIAL IV PRN (23:41)
[2021-02-01] VITALS: BP 120/63
[2021-02-01] MEDS: DEXTROSE 5% WATER 1,000 ML IV SCH ×2 (03:41→12:37)
[2021-02-01 04:00] VITALS: BP 121/62
[2021-02-01] MEDS: AMPICILLIN 2,000 MG in SODIUM CHLORIDE 0.9% 100 ML IV SCH ×2 (05:02→19:29)
[2021-02-01] MEDS: INSULIN LISPRO (LOW DOSE) 100 UNITS/ML SUBCUT SCH ×3 (05:49→17:10)
[2021-02-01] MEDS: INSULIN LISPRO 100 UNITS/ML SUBCUT SCH ×3 (05:49→17:32)
[2021-02-01] MEDS: BLOOD SUGAR DIAGNOSTIC STRIP TEST SCH ×4 (05:49→20:39)
[2021-02-01 08:00] VITALS: BP 145/75
[2021-02-01] MEDS ORDERED: POTASSIUM CHLORIDE 20MEQ TABLET SR PO NR (08:30)
[2021-02-01] MEDS ORDERED: POTASSIUM CHLORIDE INJ 40 MEQ in DEXT 5% WATER 250 ML IV NR (09:30)
[2021-02-01] MEDS: ACETAMINOPHEN 650MG/20.3ML UDC PO PRN (10:12)
[2021-02-01] MEDS: METOPROLOL TARTRATE 25MG TABLET PO SCH ×2 (10:13→20:40)
[2021-02-01] MEDS: FAMOTIDINE 20MG/2ML VIAL IV SCH (10:13)
[2021-02-01] MEDS: ENOXAPARIN 30MG/0.3ML SYR SUBCUT SCH (10:13)
[2021-02-01] MEDS: CALAMINE LOTION 120ML TOP SCH ×2 (10:23→20:51)
[2021-02-01] MEDS: INSULIN GLARGINE UD 100 UNITS/ML SYR SUBCUT SCH (10:24)
[2021-02-01 11:06] LABS: PHOSPHORUS 3.3 mg/dL (2.5-4.9)
[2021-02-01 12:00] VITALS: BP 103/60
[2021-02-01] MEDS ORDERED: LORAZEPAM 2MG/ML CPJ IV NR (15:00)
[2021-02-01 16:00] VITALS: BP 116/60
[2021-02-01] MEDS: VANCOMYCIN 1250MG in DEXTROSE 5% WATER 250ML IV SCH (17:27)
[2021-02-01] MEDS: ACETAMINOPHEN 650MG SUPP PR PRN (17:30)
[2021-02-01 20:00] VITALS: BP 131/69
[2021-02-01] MEDS: THIAMINE HCL 200 MG in SODIUM CHLORIDE 0.9% 98 ML IV SCH (20:39)
[2021-02-01] MEDS: HALOPERIDOL LACTATE 5MG/ML VIAL IM PRN (20:39)
[2021-02-01 23:14] LABS: BASOPHILS % 0.6 % (0.0-2.0); EOSINOPHILS % 1.4 % (0.0-5.0); HEMATOCRIT. 27.2 % (36.0-48.0); LYMPHOCYTES % 33.5 % (20.0-50.0); MEAN CORPUSCULAR HEMOGLOBIN 30.4 pg (28.0-32.0); MEAN CORPUSCULAR VOLUME 92.1 fL (81.0-99.0); MEAN PLATELET VOLUME 9.1 fl (7.4-10.4); MONOCYTES % 7.4 % (2.0-8.0); NEUTROPHILS % 57.1 % (40.0-76.0); PLATELET 547 x1000/uL (130-400); RED BLOOD CELL COUNT 2.95 mill/uL (4.2-5.4); RED CELL DISTRIBUTION WIDTH 15.4 % (11.6-14.6)
[2021-02-02] VITALS (7 sets, daily range): BP systolic 119–168; BP diastolic 64–76
[2021-02-02] MEDS: ENOXAPARIN 30MG/0.3ML SYR SUBCUT SCH ×3 (00:03→20:26)
[2021-02-02] MEDS: DEXTROSE 5% WATER 1,000 ML IV SCH ×3 (00:04→12:26)
[2021-02-02] MEDS: ACETAMINOPHEN 650MG/20.3ML UDC PO PRN (03:45)
[2021-02-02] MEDS: AMPICILLIN 2,000 MG in SODIUM CHLORIDE 0.9% 100 ML IV SCH ×2 (05:50→19:47)
[2021-02-02] MEDS: BLOOD SUGAR DIAGNOSTIC STRIP TEST SCH ×4 (05:50→20:35)
[2021-02-02] MEDS: INSULIN LISPRO (LOW DOSE) 100 UNITS/ML SUBCUT SCH ×3 (05:51→17:10)
[2021-02-02] MEDS: INSULIN LISPRO 100 UNITS/ML SUBCUT SCH ×3 (07:10→18:27)
[2021-02-02] MEDS ORDERED: POTASSIUM CHLORIDE 20MEQ TABLET SR PO SCH (09:00)
[2021-02-02] MEDS: METOPROLOL TARTRATE 25MG TABLET PO SCH ×2 (09:10→20:26)
[2021-02-02] MEDS: FAMOTIDINE 20MG/2ML VIAL IV SCH (09:10)
[2021-02-02] MEDS: CALAMINE LOTION 120ML TOP SCH ×2 (09:10→20:43)
[2021-02-02] MEDS ORDERED: INSULIN GLARGINE UD 100 UNITS/ML SYR SUBCUT SCH (10:00)
[2021-02-02] MEDS ORDERED: VANCOMYCIN 1 G PREMIX 200 ML IV SCH (14:00)
[2021-02-02] MEDS: RISPERIDONE 1MG TABLET PO SCH (18:27)
[2021-02-02] MEDS: HALOPERIDOL LACTATE 5MG/ML VIAL IM PRN (20:26)
[2021-02-02] MEDS: DIPHENHYDRAMINE 50MG/ML VIAL IV PRN (20:35)
[2021-02-02 20:47] LABS: PHOSPHORUS 3.3 mg/dL (2.5-4.9)
[2021-02-02] MEDS: LORAZEPAM 2MG/ML CPJ IV PRN (21:58)
[2021-02-02] MEDS ORDERED: MAGNESIUM 2 G PREMIX 50 ML IV NR (22:00)
[2021-02-03] VITALS: BP 127/60
[2021-02-03] MEDS: DEXTROSE 5% WATER 1,000 ML IV SCH ×4 (03:47→21:18)
[2021-02-03 04:00] VITALS: BP 127/82
[2021-02-03] MEDS: AMPICILLIN 2,000 MG in SODIUM CHLORIDE 0.9% 100 ML IV SCH ×2 (05:11→17:09)
[2021-02-03] MEDS: INSULIN LISPRO (LOW DOSE) 100 UNITS/ML SUBCUT SCH ×3 (05:18→17:10)
[2021-02-03] MEDS: BLOOD SUGAR DIAGNOSTIC STRIP TEST SCH ×4 (05:19→21:18)
[2021-02-03] MEDS: INSULIN LISPRO 100 UNITS/ML SUBCUT SCH ×3 (05:27→17:11)
[2021-02-03 08:41] VITALS: BP 144/75
[2021-02-03] MEDS: RISPERIDONE 1MG TABLET PO SCH (09:39)
[2021-02-03] MEDS: METOPROLOL TARTRATE 25MG TABLET PO SCH ×2 (09:40→21:18)
[2021-02-03] MEDS: FAMOTIDINE 20MG/2ML VIAL IV SCH (09:40)
[2021-02-03] MEDS: CALAMINE LOTION 120ML TOP SCH ×2 (09:41→21:19)
[2021-02-03] MEDS: ENOXAPARIN 30MG/0.3ML SYR SUBCUT SCH ×2 (09:41→21:17)
[2021-02-03] MEDS: INSULIN GLARGINE UD 100 UNITS/ML SYR SUBCUT SCH (09:59)
[2021-02-03 10:45] LABS: HEMATOCRIT. 33.4 % (36.0-48.0); HEMOGLOBIN. 10.6 g/dL (12.0-16.0); MEAN CORPUSCULAR HEMOGLOBIN 30.6 pg (28.0-32.0); MEAN CORPUSCULAR VOLUME 96.9 fL (81.0-99.0); RED BLOOD CELL COUNT 3.45 mill/uL (4.2-5.4); RED CELL DISTRIBUTION WIDTH 16.4 % (11.6-14.6)
[2021-02-03 12:10] LABS: PLATELET ESTIMATE INCREASED
[2021-02-03 12:12] LABS: MEAN PLATELET VOLUME 9.8 fl (7.4-10.4); PLATELET 555 x1000/uL (130-400)
[2021-02-03 12:33] VITALS: BP 143/83
[2021-02-03 16:30] VITALS: BP 133/75
[2021-02-03 20:00] VITALS: BP 132/73
[2021-02-03] MEDS: LORAZEPAM 2MG/ML CPJ IV PRN (21:18)
[2021-02-03] MEDS: HALOPERIDOL LACTATE 5MG/ML VIAL IM PRN (21:31)
[2021-02-03] MEDS: DIPHENHYDRAMINE 50MG/ML VIAL IV PRN (21:51)
[2021-02-04] VITALS: BP 139/78
[2021-02-04 04:00] VITALS: BP 126/84
[2021-02-04] MEDS: DEXTROSE 5% WATER 1,000 ML IV SCH ×2 (04:45→12:45)
[2021-02-04] MEDS: AMPICILLIN 2,000 MG in SODIUM CHLORIDE 0.9% 100 ML IV SCH ×2 (05:09→18:27)
[2021-02-04] MEDS: INSULIN LISPRO (LOW DOSE) 100 UNITS/ML SUBCUT SCH ×3 (05:42→17:10)
[2021-02-04] MEDS: BLOOD SUGAR DIAGNOSTIC STRIP TEST SCH ×4 (05:42→21:52)
[2021-02-04] MEDS: INSULIN LISPRO 100 UNITS/ML SUBCUT SCH ×3 (05:45→17:10)
[2021-02-04 08:00] VITALS: BP 130/64
[2021-02-04] MEDS: FAMOTIDINE 20MG/2ML VIAL IV SCH (09:19)
[2021-02-04] MEDS: ENOXAPARIN 30MG/0.3ML SYR SUBCUT SCH ×2 (09:19→21:52)
[2021-02-04] MEDS: RISPERIDONE 1MG TABLET PO SCH (09:19)
[2021-02-04] MEDS: CALAMINE LOTION 120ML TOP SCH ×2 (09:20→21:53)
[2021-02-04] MEDS: LORAZEPAM 2MG/ML CPJ IV PRN (09:20)
[2021-02-04] MEDS: METOPROLOL TARTRATE 25MG TABLET PO SCH ×2 (09:22→21:53)
[2021-02-04] MEDS: INSULIN GLARGINE UD 100 UNITS/ML SYR SUBCUT SCH (09:23)
[2021-02-04 11:00] VITALS: BP 107/58
[2021-02-04 12:39] LABS: CLARITY URINE CLOUDY (CLEAR); COLOR URINE YELLOW (YELLOW); KETONES URINE NEGATIVE (NEGATIVE); LEUKOCYTE ESTERASE URINE 3+ (NEGATIVE); NITRITE URINE NEGATIVE (NEGATIVE); OCCULT BLOOD URINE 3+ (NEGATIVE); PH URINE 5.5 (4.5-8.0); PROTEIN URINE 1+ (NEGATIVE); UROBILINOGEN URINE 0.2 E.U./dL (0.2-1.0)
[2021-02-04 18:04] LABS: PHOSPHORUS 4.5 mg/dL (2.5-4.9)
[2021-02-04 20:00] VITALS: BP 130/68
[2021-02-04 20:58] LABS: BASOPHILS % 0.6 % (0.0-2.0); EOSINOPHILS % 1.4 % (0.0-5.0); HEMATOCRIT. 28.9 % (36.0-48.0); HEMOGLOBIN. 9.5 g/dL (12.0-16.0); LYMPHOCYTES % 30.8 % (20.0-50.0); MEAN CORPUSCULAR HEMOGLOBIN 30.6 pg (28.0-32.0); MEAN CORPUSCULAR VOLUME 92.9 fL (81.0-99.0); MEAN PLATELET VOLUME 8.9 fl (7.4-10.4); MONOCYTES % 8.3 % (2.0-8.0); NEUTROPHILS % 58.9 % (40.0-76.0); PLATELET 599 x1000/uL (130-400); RED BLOOD CELL COUNT 3.11 mill/uL (4.2-5.4); RED CELL DISTRIBUTION WIDTH 15.7 % (11.6-14.6)
[2021-02-05] VITALS: BP 129/76
[2021-02-05] MEDS: IPRATROPIUM/ALBUTEROL 0.5-3(2.5)MG/3ML NEB HHN PRN ×2 (01:31→09:55)
[2021-02-05] MEDS: HALOPERIDOL LACTATE 5MG/ML VIAL IM PRN (02:03)
[2021-02-05 04:00] VITALS: BP 111/58
[2021-02-05] MEDS: DEXTROSE 5% WATER 1,000 ML IV SCH ×2 (04:45→06:15)
[2021-02-05] MEDS: BLOOD SUGAR DIAGNOSTIC STRIP TEST SCH ×4 (06:14→21:25)
[2021-02-05] MEDS: AMPICILLIN 2,000 MG in SODIUM CHLORIDE 0.9% 100 ML IV SCH ×2 (06:15→17:19)
[2021-02-05] MEDS: INSULIN LISPRO (LOW DOSE) 100 UNITS/ML SUBCUT SCH ×3 (06:16→17:10)
[2021-02-05] MEDS: INSULIN LISPRO 100 UNITS/ML SUBCUT SCH ×3 (07:10→17:10)
[2021-02-05 08:00] VITALS: BP 138/59
[2021-02-05] MEDS: LORAZEPAM 2MG/ML CPJ IV PRN ×2 (09:29→21:31)
[2021-02-05] MEDS: FAMOTIDINE 20MG/2ML VIAL IV SCH (09:29)
[2021-02-05] MEDS: METOPROLOL TARTRATE 25MG TABLET PO SCH ×2 (09:30→21:26)
[2021-02-05] MEDS: CALAMINE LOTION 120ML TOP SCH ×2 (09:31→21:26)
[2021-02-05] MEDS: RISPERIDONE 1MG TABLET PO SCH (09:31)
[2021-02-05] MEDS: ENOXAPARIN 30MG/0.3ML SYR SUBCUT SCH ×2 (09:31→21:25)
[2021-02-05 10:33] LABS: BASOPHILS % 0.1 % (0.0-2.0); EOSINOPHILS % 1.5 % (0.0-5.0); HEMATOCRIT. 27.6 % (36.0-48.0); HEMOGLOBIN. 9.1 g/dL (12.0-16.0); LYMPHOCYTES % 29.5 % (20.0-50.0); MEAN CORPUSCULAR HEMOGLOBIN 30.7 pg (28.0-32.0); MEAN CORPUSCULAR VOLUME 93.5 fL (81.0-99.0); MEAN PLATELET VOLUME 8.6 fl (7.4-10.4); NEUTROPHILS % 61.9 % (40.0-76.0); PLATELET 634 x1000/uL (130-400); RED BLOOD CELL COUNT 2.95 mill/uL (4.2-5.4); RED CELL DISTRIBUTION WIDTH 15.8 % (11.6-14.6)
[2021-02-05] MEDS: INSULIN GLARGINE UD 100 UNITS/ML SYR SUBCUT SCH (10:33)
[2021-02-05 12:00] VITALS: BP 111/75
[2021-02-05] MEDS: ACETAMINOPHEN 650MG/20.3ML UDC PO PRN (13:05)
[2021-02-05] MEDS ORDERED: KCL 20MEQ/100ML PREMIX 100 ML IV SCH (14:00)
[2021-02-05 16:00] VITALS: BP 130/72
[2021-02-05] MEDS: POTASSIUM CHLORIDE INJ 30 MEQ in DEXTROSE 5% WATER 1,000 ML IV SCH ×2 (17:19→21:31)
[2021-02-05 20:00] VITALS: BP 112/68
[2021-02-06] VITALS: BP 126/76
[2021-02-06 04:00] VITALS: BP 145/79
[2021-02-06] MEDS: POTASSIUM CHLORIDE INJ 30 MEQ in DEXTROSE 5% WATER 1,000 ML IV SCH ×2 (05:49→12:44)
[2021-02-06] MEDS: AMPICILLIN 2,000 MG in SODIUM CHLORIDE 0.9% 100 ML IV SCH ×2 (05:49→18:03)
[2021-02-06] MEDS: INSULIN LISPRO 100 UNITS/ML SUBCUT SCH ×3 (05:52→17:10)
[2021-02-06 06:02] LABS: CHLORIDE 111 mEq/L (98-107)
[2021-02-06 06:07] LABS: PHOSPHORUS 3.7 mg/dL (2.5-4.9)
[2021-02-06 06:19] LABS: BASOPHILS % 0.6 % (0.0-2.0); EOSINOPHILS % 2.3 % (0.0-5.0); HEMATOCRIT. 27.7 % (36.0-48.0); HEMOGLOBIN. 9.2 g/dL (12.0-16.0); LYMPHOCYTES % 30.9 % (20.0-50.0); MEAN CORPUSCULAR HEMOGLOBIN 30.9 pg (28.0-32.0); MEAN CORPUSCULAR VOLUME 93.3 fL (81.0-99.0); MEAN PLATELET VOLUME 8.9 fl (7.4-10.4); MONOCYTES % 7.8 % (2.0-8.0); NEUTROPHILS % 58.4 % (40.0-76.0); PLATELET 607 x1000/uL (130-400); RED BLOOD CELL COUNT 2.97 mill/uL (4.2-5.4); RED CELL DISTRIBUTION WIDTH 15.9 % (11.6-14.6)
[2021-02-06] MEDS: INSULIN LISPRO (LOW DOSE) 100 UNITS/ML SUBCUT SCH ×3 (06:30→17:10)
[2021-02-06] MEDS: BLOOD SUGAR DIAGNOSTIC STRIP TEST SCH ×4 (06:30→21:00)
[2021-02-06 08:00] VITALS: BP 158/79
[2021-02-06] MEDS: INSULIN GLARGINE UD 100 UNITS/ML SYR SUBCUT SCH (10:22)
[2021-02-06] MEDS: ENOXAPARIN 30MG/0.3ML SYR SUBCUT SCH ×2 (10:23→21:54)
[2021-02-06] MEDS: METOPROLOL TARTRATE 25MG TABLET PO SCH ×2 (10:24→21:55)
[2021-02-06] MEDS: FAMOTIDINE 20MG TABLET PO SCH (10:24)
[2021-02-06] MEDS: LORAZEPAM 2MG/ML CPJ IV PRN (10:24)
[2021-02-06] MEDS: RISPERIDONE 1MG TABLET PO SCH ×2 (10:24→18:03)
[2021-02-06] MEDS: CALAMINE LOTION 120ML TOP SCH ×2 (10:25→21:55)
[2021-02-06 12:00] VITALS: BP 146/76
[2021-02-06] MEDS ORDERED: KCL 10MEQ/50ML PREMIX 50 ML IV SCH (13:00)
[2021-02-06 19:08] LABS: ANTI-MYELOPEROXIDASE AB < 9.0 U/mL (0.0-9.0); ANTI-PROTEINASE 3 ABS 22.9 U/mL (0.0-3.5)
[2021-02-06 20:00] VITALS: BP_SYST 116; BP_DIAS 60; BP_DIAS 76
[2021-02-07] VITALS: BP 124/48
[2021-02-07] MEDS: POTASSIUM CHLORIDE INJ 30 MEQ in DEXTROSE 5% WATER 1,000 ML IV SCH ×2 (00:27→06:44)
[2021-02-07] MEDS: AMPICILLIN 2,000 MG in SODIUM CHLORIDE 0.9% 100 ML IV SCH ×4 (00:30→16:46)
[2021-02-07 04:00] VITALS: BP 139/66
[2021-02-07] MEDS: INSULIN LISPRO (LOW DOSE) 100 UNITS/ML SUBCUT SCH ×3 (07:10→17:10)
[2021-02-07] MEDS: BLOOD SUGAR DIAGNOSTIC STRIP TEST SCH ×4 (07:56→21:51)
[2021-02-07 08:00] VITALS: BP 120/54
[2021-02-07] MEDS: ENOXAPARIN 30MG/0.3ML SYR SUBCUT SCH ×2 (08:12→21:44)
[2021-02-07] MEDS: RISPERIDONE 1MG TABLET PO SCH ×2 (08:13→16:46)
[2021-02-07] MEDS: LORAZEPAM 2MG/ML CPJ IV PRN ×2 (08:13→16:46)
[2021-02-07] MEDS: FAMOTIDINE 20MG TABLET PO SCH (08:13)
[2021-02-07] MEDS: METOPROLOL TARTRATE 25MG TABLET PO SCH ×2 (08:21→21:43)
[2021-02-07] MEDS: INSULIN LISPRO 100 UNITS/ML SUBCUT SCH ×3 (08:23→17:10)
[2021-02-07] MEDS: CALAMINE LOTION 120ML TOP SCH ×2 (10:31→21:44)
[2021-02-07] MEDS: ACETAMINOPHEN 650MG/20.3ML UDC PO PRN ×2 (10:31→17:10)
[2021-02-07] MEDS: INSULIN GLARGINE UD 100 UNITS/ML SYR SUBCUT SCH (10:32)
[2021-02-07 12:00] VITALS: BP 117/95
[2021-02-07] MEDS ORDERED: POTASSIUM CHLORIDE 20MEQ/PACKET PO NR (12:00)
[2021-02-07 13:06] LABS: BASOPHILS % 0.8 % (0.0-2.0); EOSINOPHILS % 2.3 % (0.0-5.0); HEMATOCRIT. 26.4 % (36.0-48.0); HEMOGLOBIN. 8.9 g/dL (12.0-16.0); LYMPHOCYTES % 21.4 % (20.0-50.0); MEAN CORPUSCULAR HEMOGLOBIN 31.1 pg (28.0-32.0); MEAN CORPUSCULAR VOLUME 91.9 fL (81.0-99.0); MEAN PLATELET VOLUME 8.9 fl (7.4-10.4); MONOCYTES % 6.7 % (2.0-8.0); NEUTROPHILS % 68.8 % (40.0-76.0); PLATELET 554 x1000/uL (130-400); RED BLOOD CELL COUNT 2.87 mill/uL (4.2-5.4); RED CELL DISTRIBUTION WIDTH 15.7 % (11.6-14.6)
[2021-02-07 13:09] LABS: ATYPICAL P-ANCA <1:20 titer (Neg:<1:20); CYTOPLASMIC C-ANCA <1:20 titer (Neg:<1:20); PERINUCLEAR P-ANCA <1:20 titer (Neg:<1:20)
[2021-02-07 13:20] LABS: CHLORIDE 111 mEq/L (98-107)
[2021-02-07 16:00] VITALS: BP 152/77
[2021-02-07 20:00] VITALS: BP 101/68
[2021-02-07] MEDS: LORAZEPAM 1MG TABLET PO PRN (21:43)
[2021-02-07] MEDS: AMPICILLIN SODIUM IM SCH (21:51)
[2021-02-08] VITALS: BP 136/67
[2021-02-08] MEDS: DIPHENHYDRAMINE 50MG/ML VIAL IV PRN ×2 (03:09→23:42)
[2021-02-08] MEDS: AMPICILLIN SODIUM IM SCH (03:12)
[2021-02-08 04:00] VITALS: BP 138/69
[2021-02-08] MEDS: BLOOD SUGAR DIAGNOSTIC STRIP TEST SCH ×4 (06:32→21:31)
[2021-02-08] MEDS: INSULIN LISPRO (LOW DOSE) 100 UNITS/ML SUBCUT SCH ×3 (06:32→16:50)
[2021-02-08] MEDS: ACETAMINOPHEN 650MG/20.3ML UDC PO PRN ×2 (06:32→18:49)
[2021-02-08] MEDS: INSULIN LISPRO 100 UNITS/ML SUBCUT SCH ×3 (07:10→16:51)
[2021-02-08 08:00] VITALS: BP 146/65
[2021-02-08] MEDS: AMPICILLIN 2,000 MG in SODIUM CHLORIDE 0.9% 100 ML IV SCH ×5 (09:08→23:42)
[2021-02-08] MEDS: FAMOTIDINE 20MG TABLET PO SCH (09:09)
[2021-02-08] MEDS: METOPROLOL TARTRATE 25MG TABLET PO SCH ×2 (09:09→20:19)
[2021-02-08] MEDS: RISPERIDONE 1MG TABLET PO SCH ×2 (09:09→16:47)
[2021-02-08] MEDS: CALAMINE LOTION 120ML TOP SCH ×2 (09:12→21:33)
[2021-02-08] MEDS: ENOXAPARIN 30MG/0.3ML SYR SUBCUT SCH ×2 (09:12→20:17)
[2021-02-08 10:27] LABS: BASOPHILS % 0.4 % (0.0-2.0); EOSINOPHILS % 0.3 % (0.0-5.0); HEMATOCRIT. 28.2 % (36.0-48.0); HEMOGLOBIN. 8.9 g/dL (12.0-16.0); LYMPHOCYTES % 19.8 % (20.0-50.0); MEAN CORPUSCULAR VOLUME 94.4 fL (81.0-99.0); MEAN PLATELET VOLUME 8.5 fl (7.4-10.4); MONOCYTES % 9.7 % (2.0-8.0); NEUTROPHILS % 69.8 % (40.0-76.0); PLATELET 484 x1000/uL (130-400); RED BLOOD CELL COUNT 2.99 mill/uL (4.2-5.4)
[2021-02-08 10:44] LABS: PHOSPHORUS 3.6 mg/dL (2.5-4.9)
[2021-02-08] MEDS: INSULIN GLARGINE UD 100 UNITS/ML SYR SUBCUT SCH (10:49)
[2021-02-08] MEDS ORDERED: POTASSIUM CHLORIDE 20MEQ TABLET SR PO SCH (11:15)
[2021-02-08 12:00] VITALS: BP 121/78
[2021-02-08] MEDS ORDERED: MAGNESIUM 4 G PREMIX 100 ML IV SCH (12:00)
[2021-02-08] MEDS ORDERED: LACTULOSE 20G/30ML UDC PO NR (14:15)
[2021-02-08 16:00] VITALS: BP 136/76
[2021-02-08 20:00] VITALS: BP 103/50
[2021-02-08] MEDS: LORAZEPAM 1MG TABLET PO PRN (22:49)
[2021-02-09] VITALS (7 sets, daily range): BP systolic 109–148; BP diastolic 65–78
[2021-02-09] MEDS: ACETAMINOPHEN 650MG/20.3ML UDC PO PRN (05:47)
[2021-02-09] MEDS: AMPICILLIN 2,000 MG in SODIUM CHLORIDE 0.9% 100 ML IV SCH ×3 (05:47→17:47)
[2021-02-09] MEDS: BLOOD SUGAR DIAGNOSTIC STRIP TEST SCH ×4 (06:39→21:24)
[2021-02-09] MEDS: INSULIN LISPRO 100 UNITS/ML SUBCUT SCH ×3 (06:39→17:50)
[2021-02-09] MEDS: INSULIN LISPRO (LOW DOSE) 100 UNITS/ML SUBCUT SCH ×3 (06:39→17:10)
[2021-02-09 07:38] LABS: BASOPHILS % 0.6 % (0.0-2.0); EOSINOPHILS % 0.9 % (0.0-5.0); HEMATOCRIT. 28.1 % (36.0-48.0); LYMPHOCYTES % 26.1 % (20.0-50.0); MEAN CORPUSCULAR HEMOGLOBIN 29.8 pg (28.0-32.0); MEAN CORPUSCULAR VOLUME 93.4 fL (81.0-99.0); MEAN PLATELET VOLUME 8.9 fl (7.4-10.4); MONOCYTES % 9.5 % (2.0-8.0); NEUTROPHILS % 62.9 % (40.0-76.0); PLATELET 486 x1000/uL (130-400); RED CELL DISTRIBUTION WIDTH 15.9 % (11.6-14.6)
[2021-02-09 07:50] LABS: PHOSPHORUS 3.3 mg/dL (2.5-4.9)
[2021-02-09] MEDS: ENOXAPARIN 30MG/0.3ML SYR SUBCUT SCH ×2 (09:21→21:24)
[2021-02-09] MEDS: FAMOTIDINE 20MG TABLET PO SCH (09:21)
[2021-02-09] MEDS: RISPERIDONE 1MG TABLET PO SCH ×2 (09:22→17:48)
[2021-02-09] MEDS: CALAMINE LOTION 120ML TOP SCH ×2 (09:23→21:25)
[2021-02-09] MEDS: METOPROLOL TARTRATE 25MG TABLET PO SCH ×2 (09:23→21:00)
[2021-02-09] MEDS: INSULIN GLARGINE UD 100 UNITS/ML SYR SUBCUT SCH (09:25)
[2021-02-09] MEDS: CEFEPIME 1,000 MG in DEXTROSE 5% WATER 50 ML IV SCH ×2 (13:48→21:23)
[2021-02-10] VITALS: BP 139/82
[2021-02-10] MEDS: ACETAMINOPHEN 650MG/20.3ML UDC PO PRN (00:27)
[2021-02-10] MEDS: AMPICILLIN 2,000 MG in SODIUM CHLORIDE 0.9% 100 ML IV SCH ×5 (00:27→23:02)
[2021-02-10] MEDS: LORAZEPAM 1MG TABLET PO PRN (01:42)
[2021-02-10 04:00] VITALS: BP 140/85
[2021-02-10] MEDS: CEFEPIME 1,000 MG in DEXTROSE 5% WATER 50 ML IV SCH ×3 (06:02→21:26)
[2021-02-10] MEDS: BLOOD SUGAR DIAGNOSTIC STRIP TEST SCH ×4 (06:34→21:22)
[2021-02-10] MEDS: INSULIN LISPRO (LOW DOSE) 100 UNITS/ML SUBCUT SCH ×3 (06:34→17:10)
[2021-02-10] MEDS: INSULIN LISPRO 100 UNITS/ML SUBCUT SCH ×3 (06:35→17:10)
[2021-02-10 07:53] LABS: BASOPHILS % 0.4 % (0.0-2.0); EOSINOPHILS % 3.8 % (0.0-5.0); HEMATOCRIT. 26.9 % (36.0-48.0); HEMOGLOBIN. 8.7 g/dL (12.0-16.0); LYMPHOCYTES % 37.7 % (20.0-50.0); MEAN CORPUSCULAR HEMOGLOBIN 30.2 pg (28.0-32.0); MEAN CORPUSCULAR VOLUME 92.9 fL (81.0-99.0); MEAN PLATELET VOLUME 8.9 fl (7.4-10.4); MONOCYTES % 13.2 % (2.0-8.0); NEUTROPHILS % 44.9 % (40.0-76.0); PLATELET 440 x1000/uL (130-400); RED BLOOD CELL COUNT 2.89 mill/uL (4.2-5.4); RED CELL DISTRIBUTION WIDTH 15.8 % (11.6-14.6)
[2021-02-10 08:00] VITALS: BP 124/66
[2021-02-10 08:37] LABS: CHLORIDE 110 mEq/L (98-107)
[2021-02-10] MEDS: ENOXAPARIN 30MG/0.3ML SYR SUBCUT SCH ×2 (09:00→21:23)
[2021-02-10] MEDS ORDERED: POTASSIUM CHLORIDE 20MEQ TABLET SR PO NR (09:30)
[2021-02-10] MEDS: METOPROLOL TARTRATE 25MG TABLET PO SCH (10:07)
[2021-02-10] MEDS: FAMOTIDINE 20MG TABLET PO SCH (10:07)
[2021-02-10] MEDS: RISPERIDONE 1MG TABLET PO SCH ×2 (10:07→18:43)
[2021-02-10] MEDS: CALAMINE LOTION 120ML TOP SCH ×2 (10:08→21:22)
[2021-02-10 12:00] VITALS: BP 118/67
[2021-02-10] MEDS ORDERED: LIDOCAINE HCL 1% 20ML VIAL (Pyxis) INJ ONE (13:16)
[2021-02-10 15:32] LABS: GLUCOSE CSF 53 mg/dL (41-75)
[2021-02-10 16:00] VITALS: BP 112/51
[2021-02-10 20:00] VITALS: BP 131/70
[2021-02-10] MEDS: METOPROLOL TARTRATE 50MG TABLET PO SCH (21:22)
[2021-02-10] MEDS ORDERED: INSULIN GLARGINE UD 100 UNITS/ML SYR SUBCUT SCH (22:00)
[2021-02-10] MEDS: DIPHENHYDRAMINE 50MG/ML VIAL IV PRN (23:02)
[2021-02-11] VITALS: BP 131/72
[2021-02-11 04:00] VITALS: BP 139/84
[2021-02-11] MEDS: CEFEPIME 1,000 MG in DEXTROSE 5% WATER 50 ML IV SCH ×3 (05:27→21:30)
[2021-02-11] MEDS: AMPICILLIN 2,000 MG in SODIUM CHLORIDE 0.9% 100 ML IV SCH ×4 (05:43→23:37)
[2021-02-11] MEDS: BLOOD SUGAR DIAGNOSTIC STRIP TEST SCH ×4 (06:58→21:25)
[2021-02-11] MEDS: INSULIN LISPRO 100 UNITS/ML SUBCUT SCH ×2 (06:58→17:43)
[2021-02-11] MEDS: INSULIN LISPRO (LOW DOSE) 100 UNITS/ML SUBCUT SCH ×3 (06:58→17:10)
[2021-02-11 08:00] VITALS: BP 101/56
[2021-02-11] MEDS: METOPROLOL TARTRATE 50MG TABLET PO SCH ×2 (09:00→21:24)
[2021-02-11] MEDS: RISPERIDONE 1MG TABLET PO SCH ×2 (09:24→17:43)
[2021-02-11] MEDS: FAMOTIDINE 20MG TABLET PO SCH (09:24)
[2021-02-11] MEDS: DIPHENHYDRAMINE 50MG/ML VIAL IV PRN (09:24)
[2021-02-11] MEDS: ACETAMINOPHEN 650MG/20.3ML UDC PO PRN ×3 (09:25→23:37)
[2021-02-11] MEDS: ENOXAPARIN 30MG/0.3ML SYR SUBCUT SCH ×2 (09:25→21:24)
[2021-02-11] MEDS: CALAMINE LOTION 120ML TOP SCH ×2 (09:26→21:25)
[2021-02-11 12:00] VITALS: BP 150/76
[2021-02-11 16:00] VITALS: BP 131/56
[2021-02-11 20:00] VITALS: BP 118/68
[2021-02-11] MEDS ORDERED: INSULIN GLARGINE UD 100 UNITS/ML SYR SUBCUT SCH (22:00)
[2021-02-12] VITALS: BP 112/54
[2021-02-12 04:18] VITALS: BP 134/75
[2021-02-12] MEDS: CEFEPIME 1,000 MG in DEXTROSE 5% WATER 50 ML IV SCH ×3 (05:08→21:08)
[2021-02-12] MEDS: AMPICILLIN 2,000 MG in SODIUM CHLORIDE 0.9% 100 ML IV SCH ×3 (05:59→18:10)
[2021-02-12] MEDS: INSULIN LISPRO (LOW DOSE) 100 UNITS/ML SUBCUT SCH ×3 (06:29→17:10)
[2021-02-12] MEDS: INSULIN LISPRO 100 UNITS/ML SUBCUT SCH ×3 (06:30→18:14)
[2021-02-12] MEDS: BLOOD SUGAR DIAGNOSTIC STRIP TEST SCH ×4 (06:30→20:33)
[2021-02-12 08:00] VITALS: BP 144/67
[2021-02-12 08:34] LABS: BASOPHILS % 1.1 % (0.0-2.0); EOSINOPHILS % 6.1 % (0.0-5.0); HEMATOCRIT. 26.5 % (36.0-48.0); HEMOGLOBIN. 8.5 g/dL (12.0-16.0); LYMPHOCYTES % 33.4 % (20.0-50.0); MEAN CORPUSCULAR HEMOGLOBIN 29.8 pg (28.0-32.0); MEAN CORPUSCULAR VOLUME 93.3 fL (81.0-99.0); MEAN PLATELET VOLUME 8.9 fl (7.4-10.4); MONOCYTES % 11.2 % (2.0-8.0); NEUTROPHILS % 48.2 % (40.0-76.0); PLATELET 466 x1000/uL (130-400); RED BLOOD CELL COUNT 2.84 mill/uL (4.2-5.4); RED CELL DISTRIBUTION WIDTH 15.6 % (11.6-14.6)
[2021-02-12 08:41] LABS: CHLORIDE 110 mEq/L (98-107)
[2021-02-12 08:50] LABS: PHOSPHORUS 3.2 mg/dL (2.5-4.9)
[2021-02-12] MEDS ORDERED: POTASSIUM CHLORIDE 20MEQ/PACKET PO SCH (09:15)
[2021-02-12] MEDS: METOPROLOL TARTRATE 50MG TABLET PO SCH ×2 (10:09→21:09)
[2021-02-12] MEDS: FAMOTIDINE 20MG TABLET PO SCH (10:10)
[2021-02-12] MEDS: ENOXAPARIN 30MG/0.3ML SYR SUBCUT SCH ×2 (10:10→21:09)
[2021-02-12] MEDS: RISPERIDONE 1MG TABLET PO SCH ×2 (10:10→18:09)
[2021-02-12] MEDS: CALAMINE LOTION 120ML TOP SCH ×2 (10:11→21:42)
[2021-02-12 12:00] VITALS: BP 118/62
[2021-02-12 16:00] VITALS: BP 127/57
[2021-02-12 20:00] VITALS: BP 115/52
[2021-02-12] MEDS: DIPHENHYDRAMINE 50MG/ML VIAL IV PRN (21:10)
[2021-02-12] MEDS ORDERED: INSULIN GLARGINE UD 100 UNITS/ML SYR SUBCUT SCH (22:00)
[2021-02-13] VITALS: BP 106/50
[2021-02-13] MEDS: AMPICILLIN 2,000 MG in SODIUM CHLORIDE 0.9% 100 ML IV SCH ×4 (00:09→17:42)
[2021-02-13 04:00] VITALS: BP 127/56
[2021-02-13] MEDS: CEFEPIME 1,000 MG in DEXTROSE 5% WATER 50 ML IV SCH ×3 (04:46→20:11)
[2021-02-13] MEDS: ACETAMINOPHEN 650MG/20.3ML UDC PO PRN ×2 (06:41→20:52)
[2021-02-13] MEDS: INSULIN LISPRO 100 UNITS/ML SUBCUT SCH ×3 (07:10→17:43)
[2021-02-13] MEDS: INSULIN LISPRO (LOW DOSE) 100 UNITS/ML SUBCUT SCH ×3 (07:10→17:10)
[2021-02-13] MEDS: BLOOD SUGAR DIAGNOSTIC STRIP TEST SCH ×4 (07:11→21:02)
[2021-02-13 08:00] VITALS: BP 119/91
[2021-02-13] MEDS: RISPERIDONE 1MG TABLET PO SCH ×2 (08:40→17:36)
[2021-02-13] MEDS: FAMOTIDINE 20MG TABLET PO SCH (08:40)
[2021-02-13] MEDS: METOPROLOL TARTRATE 50MG TABLET PO SCH ×2 (08:40→20:52)
[2021-02-13] MEDS: ENOXAPARIN 30MG/0.3ML SYR SUBCUT SCH ×2 (08:40→20:52)
[2021-02-13] MEDS: CALAMINE LOTION 120ML TOP SCH ×2 (08:41→20:57)
[2021-02-13 12:00] VITALS: BP 126/65
[2021-02-13 16:00] VITALS: BP 111/58
[2021-02-13] MEDS ORDERED: POTASSIUM CHLORIDE 20MEQ/PACKET PO NR (19:00)
[2021-02-13 20:00] VITALS: BP 112/59
[2021-02-13] MEDS: DIPHENHYDRAMINE 50MG/ML VIAL IV PRN (20:52)
[2021-02-13] MEDS ORDERED: INSULIN GLARGINE UD 100 UNITS/ML SYR SUBCUT SCH (22:00)
[2021-02-14] VITALS (7 sets, daily range): BP systolic 97–128; BP diastolic 46–75
[2021-02-14] MEDS: LORAZEPAM 2MG/ML CPJ IV PRN ×2 (01:04→20:40)
[2021-02-14] MEDS: AMPICILLIN 2,000 MG in SODIUM CHLORIDE 0.9% 100 ML IV SCH ×5 (01:04→23:36)
[2021-02-14] MEDS: DIPHENOXYLATE/ATROPINE 2.5/0.025MG TABLET PO PRN ×2 (02:12→20:17)
[2021-02-14] MEDS: CEFEPIME 1,000 MG in DEXTROSE 5% WATER 50 ML IV SCH ×3 (05:06→20:16)
[2021-02-14] MEDS: INSULIN LISPRO 100 UNITS/ML SUBCUT SCH ×3 (05:14→18:26)
[2021-02-14] MEDS: BLOOD SUGAR DIAGNOSTIC STRIP TEST SCH ×4 (05:14→20:44)
[2021-02-14] MEDS: INSULIN LISPRO (LOW DOSE) 100 UNITS/ML SUBCUT SCH ×3 (05:15→17:10)
[2021-02-14 09:06] LABS: BASOPHILS % 0.6 % (0.0-2.0); EOSINOPHILS % 4.8 % (0.0-5.0); HEMATOCRIT. 27.7 % (36.0-48.0); LYMPHOCYTES % 32.1 % (20.0-50.0); MEAN CORPUSCULAR HEMOGLOBIN 29.9 pg (28.0-32.0); MEAN PLATELET VOLUME 7.9 fl (7.4-10.4); MONOCYTES % 11.8 % (2.0-8.0); NEUTROPHILS % 50.7 % (40.0-76.0); PLATELET 574 x1000/uL (130-400); RED BLOOD CELL COUNT 3.01 mill/uL (4.2-5.4); RED CELL DISTRIBUTION WIDTH 15.5 % (11.6-14.6)
[2021-02-14 09:10] LABS: CHLORIDE 111 mEq/L (98-107)
[2021-02-14] MEDS: METOPROLOL TARTRATE 50MG TABLET PO SCH ×2 (09:18→20:17)
[2021-02-14] MEDS: FAMOTIDINE 20MG TABLET PO SCH (09:18)
[2021-02-14] MEDS: RISPERIDONE 1MG TABLET PO SCH ×2 (09:19→17:09)
[2021-02-14] MEDS: CALAMINE LOTION 120ML TOP SCH ×2 (09:20→20:40)
[2021-02-14] MEDS: ENOXAPARIN 30MG/0.3ML SYR SUBCUT SCH ×2 (09:22→20:18)
[2021-02-14] MEDS ORDERED: LANTUSUD SUBCUT (11:51)
[2021-02-14] MEDS ORDERED: INSLIS SUBCUT (11:51)
[2021-02-14] MEDS: ACETAMINOPHEN 650MG/20.3ML UDC PO PRN (20:17)
[2021-02-14] MEDS: DIPHENHYDRAMINE 50MG/ML VIAL IV PRN (20:17)
[2021-02-14] MEDS ORDERED: INSULIN GLARGINE UD 100 UNITS/ML SYR SUBCUT SCH (22:00)
[2021-02-15] MEDS: LORAZEPAM 2MG/ML CPJ IV PRN ×2 (03:45→20:46)
[2021-02-15 04:00] VITALS: BP 140/80
[2021-02-15] MEDS: CEFEPIME 1,000 MG in DEXTROSE 5% WATER 50 ML IV SCH ×3 (04:35→20:18)
[2021-02-15] MEDS: AMPICILLIN 2,000 MG in SODIUM CHLORIDE 0.9% 100 ML IV SCH ×3 (05:04→18:20)
[2021-02-15] MEDS: BLOOD SUGAR DIAGNOSTIC STRIP TEST SCH ×4 (06:02→20:39)
[2021-02-15] MEDS: INSULIN LISPRO 100 UNITS/ML SUBCUT SCH ×3 (06:02→17:10)
[2021-02-15] MEDS: INSULIN LISPRO (LOW DOSE) 100 UNITS/ML SUBCUT SCH ×3 (06:02→17:10)
[2021-02-15 06:56] LABS: AMYLASE 33 IU/L (25-115)
[2021-02-15 08:00] VITALS: BP 108/56
[2021-02-15] MEDS: CALAMINE LOTION 120ML TOP SCH ×2 (09:00→20:46)
[2021-02-15] MEDS: METOPROLOL TARTRATE 50MG TABLET PO SCH ×2 (09:00→20:19)
[2021-02-15] MEDS: FAMOTIDINE 20MG TABLET PO SCH (10:25)
[2021-02-15] MEDS: RISPERIDONE 1MG TABLET PO SCH ×2 (10:26→17:00)
[2021-02-15] MEDS: ENOXAPARIN 30MG/0.3ML SYR SUBCUT SCH ×2 (10:34→20:19)
[2021-02-15 12:00] VITALS: BP 149/63
[2021-02-15 16:00] VITALS: BP 95/60
[2021-02-15] MEDS ORDERED: NALOXONE HCL 0.4MG/ML VIAL IV PRN (19:30)
[2021-02-15 20:00] VITALS: BP 119/63
[2021-02-15] MEDS: HYDROCODONE/ACETAMINOPHEN 10/325MG TABLET PO PRN (20:16)
[2021-02-15] MEDS: INSULIN GLARGINE UD 100 UNITS/ML SYR SUBCUT SCH (20:39)
[2021-02-15] MEDS: DIPHENHYDRAMINE 50MG/ML VIAL IV PRN (20:50)
[2021-02-15] MEDS: MICAFUNGIN 100 MG in SODIUM CHLORIDE 0.9% 100 ML IV SCH (22:55)
[2021-02-16] VITALS: BP 93/45
[2021-02-16] MEDS: DIPHENHYDRAMINE 50MG/ML VIAL IV PRN ×3 (03:04→21:00)
[2021-02-16] MEDS: LORAZEPAM 2MG/ML CPJ IV PRN ×2 (03:04→20:53)
[2021-02-16 04:00] VITALS: BP 119/50
[2021-02-16] MEDS: INSULIN LISPRO (LOW DOSE) 100 UNITS/ML SUBCUT SCH ×3 (06:24→17:10)
[2021-02-16] MEDS: INSULIN LISPRO 100 UNITS/ML SUBCUT SCH ×3 (06:24→17:10)
[2021-02-16] MEDS: BLOOD SUGAR DIAGNOSTIC STRIP TEST SCH ×4 (06:24→20:51)
[2021-02-16 08:00] VITALS: BP 128/53
[2021-02-16] MEDS: METOPROLOL TARTRATE 50MG TABLET PO SCH ×2 (09:00→20:53)
[2021-02-16] MEDS: FAMOTIDINE 20MG TABLET PO SCH (09:33)
[2021-02-16] MEDS: RISPERIDONE 1MG TABLET PO SCH ×2 (09:33→17:18)
[2021-02-16] MEDS: CALAMINE LOTION 120ML TOP SCH ×2 (09:35→21:00)
[2021-02-16] MEDS: ENOXAPARIN 30MG/0.3ML SYR SUBCUT SCH ×2 (09:35→20:52)
[2021-02-16 12:00] VITALS: BP 136/84
[2021-02-16 16:00] VITALS: BP 120/44
[2021-02-16 20:00] VITALS: BP 136/58
[2021-02-16] MEDS: INSULIN GLARGINE UD 100 UNITS/ML SYR SUBCUT SCH (20:51)
[2021-02-16] MEDS: HYDROCODONE/ACETAMINOPHEN 10/325MG TABLET PO PRN (20:53)
[2021-02-16] MEDS: MICAFUNGIN 100 MG in SODIUM CHLORIDE 0.9% 100 ML IV SCH (21:00)
[2021-02-16] MEDS: ZOLPIDEM TARTRATE 5MG TABLET PO PRN (23:14)
[2021-02-17] VITALS: BP 106/57
[2021-02-17 04:00] VITALS: BP 106/52
[2021-02-17] MEDS: BLOOD SUGAR DIAGNOSTIC STRIP TEST SCH ×4 (06:00→20:12)
[2021-02-17] MEDS: INSULIN LISPRO 100 UNITS/ML SUBCUT SCH ×3 (06:00→17:29)
[2021-02-17] MEDS: INSULIN LISPRO (LOW DOSE) 100 UNITS/ML SUBCUT SCH ×3 (06:01→17:08)
[2021-02-17] MEDS: HYDROCODONE/ACETAMINOPHEN 10/325MG TABLET PO PRN ×2 (06:02→20:07)
[2021-02-17 08:00] VITALS: BP 153/70
[2021-02-17] MEDS: ENOXAPARIN 30MG/0.3ML SYR SUBCUT SCH ×2 (08:31→20:07)
[2021-02-17] MEDS: RISPERIDONE 1MG TABLET PO SCH (08:31)
[2021-02-17] MEDS: METOPROLOL TARTRATE 50MG TABLET PO SCH ×2 (08:32→20:07)
[2021-02-17] MEDS: FAMOTIDINE 20MG TABLET PO SCH (08:32)
[2021-02-17] MEDS: CALAMINE LOTION 120ML TOP SCH ×2 (08:33→21:17)
[2021-02-17] MEDS ORDERED: DIPHENHYDRAMINE 50MG/ML VIAL IM PRN (08:45)
[2021-02-17] MEDS: DIPHENHYDRAMINE 25MG CAPSULE PO PRN ×3 (09:05→17:05)
[2021-02-17 12:00] VITALS: BP 99/48
[2021-02-17 16:00] VITALS: BP 131/61
[2021-02-17 20:00] VITALS: BP 99/47
[2021-02-17] MEDS: ZOLPIDEM TARTRATE 5MG TABLET PO PRN (20:06)
[2021-02-17] MEDS: MICAFUNGIN 100 MG in SODIUM CHLORIDE 0.9% 100 ML IV SCH (21:12)
[2021-02-17] MEDS: LORAZEPAM 2MG/ML CPJ IV PRN (21:17)
[2021-02-18] VITALS: BP 111/51
[2021-02-18] MEDS: HYDROCODONE/ACETAMINOPHEN 10/325MG TABLET PO PRN ×2 (02:35→02:37)
[2021-02-18] MEDS: DIPHENHYDRAMINE 50MG/ML VIAL IV PRN (02:37)
[2021-02-18] MEDS: LORAZEPAM 2MG/ML CPJ IV PRN (03:13)
[2021-02-18 04:00] VITALS: BP 148/60
[2021-02-18] MEDS: INSULIN LISPRO 100 UNITS/ML SUBCUT SCH (06:49)
[2021-02-18] MEDS: INSULIN LISPRO (LOW DOSE) 100 UNITS/ML SUBCUT SCH ×2 (06:49→12:10)
[2021-02-18] MEDS: BLOOD SUGAR DIAGNOSTIC STRIP TEST SCH ×2 (06:49→12:10)
[2021-02-18 08:00] VITALS: BP 117/54
[2021-02-18] MEDS: RISPERIDONE 1MG TABLET PO SCH (09:27)
[2021-02-18] MEDS: ENOXAPARIN 30MG/0.3ML SYR SUBCUT SCH (09:27)
[2021-02-18] MEDS: FAMOTIDINE 20MG TABLET PO SCH (09:27)
[2021-02-18] MEDS: METOPROLOL TARTRATE 50MG TABLET PO SCH (09:28)
[2021-02-18] MEDS: CALAMINE LOTION 120ML TOP SCH (09:30)
[2021-02-18] MEDS ORDERED: ONDANSETRON HCL 4MG TABLET PO PRN (10:45)
[2021-02-18] MEDS ORDERED: ONDANSETRON HCL 4MG/2ML INJ IV PRN (10:51)
[2021-02-18] MEDS ORDERED: FLUC200T51 MT (11:36)
[2021-02-18 12:00] VITALS: BP 125/73
[2021-02-18] MEDS ORDERED: ALBU18HF2 IH (12:03)
[2021-02-18 14:37] VITALS: BP 127/79
[2021-02-18 15:05] VITALS: BP 127/79
== END 2021-02-18 17:30 | disposition home health service (06) | DRG 720 ==
LOC: ER 17:06 → EDBEDREQTM 19:11 → EDBEDREQ 19:11 → ENRESERV 21:35 → CVICU 22:12 → 8WST 01-20 16:30
PROVIDERS: ADMIT Internal Medicine; ATTEND Internal Medicine
PROC: 02HV33Z Insertion of Infusion Device into Superior Vena Cava, Percutaneous Approach (ICD-10-PCS; principal; 2021-01-26)
PROC: B548ZZA Ultrasonography of Superior Vena Cava, Guidance (ICD-10-PCS; 2021-01-26)
PROC: 009U3ZX Drainage of Spinal Canal, Percutaneous Approach, Diagnostic (ICD-10-PCS; 2021-02-10)
PROC: B01B1ZZ Fluoroscopy of Spinal Cord using Low Osmolar Contrast (ICD-10-PCS; 2021-02-10)
PROC: 02HV33Z Insertion of Infusion Device into Superior Vena Cava, Percutaneous Approach (ICD-10-PCS; 2021-02-13)
PROC: B548ZZA Ultrasonography of Superior Vena Cava, Guidance (ICD-10-PCS; 2021-02-13)
DX: A41.9 Sepsis, unspecified organism (principal); J96.00 Acute respiratory failure, unspecified whether with hypoxia or hypercapnia; E11.10 Type 2 diabetes mellitus with ketoacidosis without coma; E43 Unspecified severe protein-calorie malnutrition; G92 Toxic encephalopathy; N17.9 Acute kidney failure, unspecified; B49 Unspecified mycosis; E11.649 Type 2 diabetes mellitus with hypoglycemia without coma; E86.0 Dehydration; E83.39 Other disorders of phosphorus metabolism; I47.1 Supraventricular tachycardia; E87.0 Hyperosmolality and hypernatremia; E86.1 Hypovolemia; E66.01 Morbid (severe) obesity due to excess calories; E78.5 Hyperlipidemia, unspecified; E87.1 Hypo-osmolality and hyponatremia; I10 Essential (primary) hypertension; M10.9 Gout, unspecified; Z86.16 Personal history of COVID-19; E83.42 Hypomagnesemia; E87.6 Hypokalemia; I48.92 Unspecified atrial flutter; K56.41 Fecal impaction; Z78.1 Physical restraint status; Z86.39 Personal history of other endocrine, nutritional and metabolic disease; K21.9 Gastro-esophageal reflux disease without esophagitis; Z91.011 Allergy to milk products; Z88.1 Allergy status to other antibiotic agents; Z91.041 Radiographic dye allergy status; Z88.5 Allergy status to narcotic agent; E78.00 Pure hypercholesterolemia, unspecified; R80.9 Proteinuria, unspecified; R31.9 Hematuria, unspecified; Z68.38 Body mass index [BMI] 38.0-38.9, adult; R94.5 Abnormal results of liver function studies; R77.8 Other specified abnormalities of plasma proteins; R74.01 Elevation of levels of liver transaminase levels; Z20.822 Contact with and (suspected) exposure to COVID-19; N39.0 Urinary tract infection, site not specified; B96.89 Other specified bacterial agents as the cause of diseases classified elsewhere
CPT/HCPCS: 36415; 36573; 36600; 62328; 70551; 71045; 71250; 74018; 74176; 76770; 76937; 80048; 80053; 80061; 80076; 80202; 80305; 81003; 82010; 82140; 82150; 82375; 82550; 82805; 82945; 82962; 83036; 83520; 83605; 83735; 83880; 83930; 83935; 84100; 84132; 84145; 84157; 84439; 84443; 84484; 84681; 85025; 86256; 86705; 86709; 86803; 87070; 87106; 87340; 87426; 87899; 92523; 92610; 93005; 93306; 93970; 94640; 95816; 97116; 97161; 97166; 97530; 97535; 99291; A4565; A6261; C1725; C1769; C1893; C9113; J0290; J0692; J0696; J1200; J1630; J1650; J1815; J2060; J2248; J2405; J2543; J3370; J3411; J3475; J3480; J3490; J7030; J7040; J7042; J7050; J7060; J7070; Q0163

== ENCOUNTER 2021-02-19 00:06 | Emergency (ER) | payer OTHER ==
[~2021-02-19] VITALS: Ht 154.9 cm; Wt 80.0 kg
[~2021-02-19 00:06] MED LIST changes: +ALBU18HF2 IH; -AMOX-424 MT; +FLUC200T51 MT; +INSLIS SUBCUT; +LANTUSUD SUBCUT; +OMEP40CA12 PO; -OMEP40CA20 PO
[2021-02-19] MEDS ORDERED: ZOLPIDEM TARTRATE 5MG TABLET PO ONE (01:15)
[2021-02-19 02:19] VITALS: BP 122/65
== END 2021-02-19 02:36 | disposition home or self-care (01) ==
LOC: ER 00:06
DX: G47.00 Insomnia, unspecified (principal); E11.9 Type 2 diabetes mellitus without complications; Z86.19 Personal history of other infectious and parasitic diseases; Z88.1 Allergy status to other antibiotic agents; Z91.011 Allergy to milk products; Z91.041 Radiographic dye allergy status
CPT/HCPCS: 82962; 93005; 99283

== ENCOUNTER 2021-02-19 22:00 | Emergency (ER) | payer OTHER ==
[~2021-02-19] VITALS: Ht 154.9 cm; Wt 116.0 kg
[2021-02-19 22:32] VITALS: BP 122/71
[2021-02-21] MEDS ORDERED: ZOLP5TAB2 MT (01:49)
[2021-02-21] MEDS ORDERED: B50 MT (01:50)
== END 2021-02-20 03:10 | disposition left against medical advice (07) ==
LOC: ER 22:00
DX: R06.02 Shortness of breath (principal); Z53.21 Procedure and treatment not carried out due to patient leaving prior to being seen by health care provider

== ENCOUNTER 2021-02-20 20:47 | Emergency (ER) | payer OTHER ==
[~2021-02-20] VITALS: Ht 154.9 cm; Wt 73.0 kg
[2021-02-20 23:34] LABS: BASOPHILS % 1.2 % (0.0-2.0); EOSINOPHILS % 0.9 % (0.0-5.0); HEMATOCRIT. 25.8 % (36.0-48.0); HEMOGLOBIN. 8.8 g/dL (12.0-16.0); LYMPHOCYTES % 39.9 % (20.0-50.0); MEAN CORPUSCULAR HEMOGLOBIN 30.9 pg (28.0-32.0); MEAN CORPUSCULAR VOLUME 90.5 fL (81.0-99.0); MEAN PLATELET VOLUME 7.1 fl (7.4-10.4); MONOCYTES % 10.5 % (2.0-8.0); NEUTROPHILS % 47.5 % (40.0-76.0); PLATELET 615 x1000/uL (130-400); RED BLOOD CELL COUNT 2.85 mill/uL (4.2-5.4); RED CELL DISTRIBUTION WIDTH 17.3 % (11.6-14.6)
[2021-02-20 23:39] LABS: CHLORIDE 104 mEq/L (98-107)
[2021-02-21] MEDS ORDERED: ZOLPIDEM TARTRATE 5MG TABLET PO ONE
[2021-02-21] MEDS ORDERED: ZOLP5TAB2 MT (01:49)
[2021-02-21 01:50] VITALS: BP 108/57
[2021-02-21] MEDS ORDERED: B50 MT (01:50)
== END 2021-02-21 02:03 | disposition home or self-care (01) ==
LOC: ER 20:47
DX: G47.00 Insomnia, unspecified (principal); Z86.19 Personal history of other infectious and parasitic diseases; Z88.3 Allergy status to other anti-infective agents; Z91.041 Radiographic dye allergy status; Z91.011 Allergy to milk products
CPT/HCPCS: 36415; 71045; 80053; 82962; 83605; 85025; 99284

== ENCOUNTER 2021-12-07 00:43 | Emergency (ER) | payer MEDICAID, OTHER ==
[~2021-12-07] VITALS: Ht 154.9 cm; Wt 103.4 kg
[~2021-12-07 00:43] MED LIST changes: +B50 MT; -OMEP40CA12 PO; +OMEP40CA20 PO
[2021-12-07] MEDS ORDERED: IPRATROPIUM BROMIDE (0.02%) 0.5MG/2.5ML NEB HHN STA (02:56)
[2021-12-07] MEDS ORDERED: ALBUTEROL (0.083%) 2.5MG/3ML NEB HHN STA (02:56)
[2021-12-07] MEDS ORDERED: METHYLPREDNISOLONE SOD SUCC 125 MG/2 ML VIAL IV STA (02:56)
[2021-12-07 03:26] LABS: BASOPHILS % 1.1 % (0.0-2.0); EOSINOPHILS % 1.1 % (0.0-5.0); HEMATOCRIT. 37.9 % (36.0-48.0); HEMOGLOBIN. 12.1 g/dL (12.0-16.0); LYMPHOCYTES % 36.6 % (20.0-50.0); MEAN CORPUSCULAR HEMOGLOBIN 27.7 pg (28.0-32.0); MEAN CORPUSCULAR VOLUME 86.7 fL (81.0-99.0); MEAN PLATELET VOLUME 9.4 fl (7.4-10.4); MONOCYTES % 6.6 % (2.0-8.0); NEUTROPHILS % 54.6 % (40.0-76.0); PLATELET 351 x1000/uL (130-400); RED BLOOD CELL COUNT 4.38 mill/uL (4.2-5.4)
[2021-12-07 03:35] LABS: CHLORIDE 108 mEq/L (98-107)
[2021-12-07 05:21] VITALS: BP 119/72
[2021-12-07] MEDS ORDERED: PRED10TA MT (06:34)
[2021-12-07] MEDS ORDERED: DOXY100C5 MT (06:34)
== END 2021-12-07 07:08 | disposition home or self-care (01) ==
LOC: ER 00:43
DX: J45.909 Unspecified asthma, uncomplicated (principal); B34.9 Viral infection, unspecified; E78.00 Pure hypercholesterolemia, unspecified; I10 Essential (primary) hypertension; Z91.011 Allergy to milk products; Z88.1 Allergy status to other antibiotic agents; Z91.041 Radiographic dye allergy status; Z79.899 Other long term (current) drug therapy; Z98.890 Other specified postprocedural states
CPT/HCPCS: 36415; 71045; 80053; 82962; 83880; 84484; 85025; 93005; 94640; 96374; 99285; J2930; Z7610

== ENCOUNTER 2022-03-05 12:12 | Emergency (ER) | payer MEDICAID ==
[~2022-03-05] VITALS: Ht 167.6 cm; Wt 100.0 kg
[~2022-03-05 12:12] MED LIST changes: +DOXY100C5 MT; +METH-653 MT; +PRED10TA MT
[2022-03-05 12:19] VITALS: BP 150/75
== END 2022-03-05 20:12 | disposition left against medical advice (07) ==
LOC: ER 12:16
DX: Z53.21 Procedure and treatment not carried out due to patient leaving prior to being seen by health care provider (principal)

== ENCOUNTER 2022-05-12 02:16 | Emergency (ER) | payer MEDICAID ==
[~2022-05-12] VITALS: Ht 154.9 cm; Wt 101.0 kg
[2022-05-12 02:28] VITALS: BP 137/89
[2022-05-12] MEDS ORDERED: METHYLPREDNISOLONE SOD SUCC 125 MG/2 ML VIAL IV STA (03:51)
[2022-05-12] MEDS ORDERED: IPRATROPIUM BROMIDE (0.02%) 0.5MG/2.5ML NEB HHN STA (03:51)
[2022-05-12] MEDS ORDERED: ALBUTEROL (0.083%) 2.5MG/3ML NEB HHN STA (03:51)
[2022-05-12] MEDS ORDERED: MAGNESIUM 2 G PREMIX 50 ML IV STA (03:51)
[2022-05-12] MEDS ORDERED: P50 MT (07:17)
[2022-05-12] MEDS ORDERED: ALBU05 NEB (07:17)
== END 2022-05-12 07:28 | disposition home or self-care (01) ==
LOC: ER 02:16
DX: R06.02 Shortness of breath (principal); J45.909 Unspecified asthma, uncomplicated; I10 Essential (primary) hypertension; E78.00 Pure hypercholesterolemia, unspecified; E11.9 Type 2 diabetes mellitus without complications; Z91.011 Allergy to milk products; Z88.1 Allergy status to other antibiotic agents; Z91.041 Radiographic dye allergy status; Z79.899 Other long term (current) drug therapy
CPT/HCPCS: 71045; 93005; 94644; 96365; 96375; 99285; J2930; J3475; Z7610

== ENCOUNTER 2022-08-06 10:59 | Emergency (ER) | payer MEDICAID ==
[~2022-08-06] VITALS: Ht 167.6 cm; Wt 100.0 kg
[~2022-08-06 10:59] MED LIST changes: +ALBU05 NEB; +P50 MT
[2022-08-06] MEDS ORDERED: SODIUM CHLORIDE 0.9% 1,000 ML IV ONE (15:15)
[2022-08-06] MEDS ORDERED: MORPHINE SULFATE 4 MG/ML CPJ (NOT FOR IM USE) IV ONE (15:15)
[2022-08-06 15:28] VITALS: BP 167/61
[2022-08-06 15:49] LABS: BASOPHILS % 1.8 % (0.0-2.0); EOSINOPHILS % 0.6 % (0.0-5.0); LYMPHOCYTES % 19.3 % (20.0-50.0); MEAN CORPUSCULAR HEMOGLOBIN 30.4 pg (28.0-32.0); MEAN CORPUSCULAR VOLUME 91.4 fL (81.0-99.0); MEAN PLATELET VOLUME 8.8 fl (7.4-10.4); MONOCYTES % 3.6 % (2.0-8.0); NEUTROPHILS % 74.7 % (40.0-76.0); PLATELET 367 x1000/uL (130-400); RED BLOOD CELL COUNT 4.27 mill/uL (4.2-5.4); RED CELL DISTRIBUTION WIDTH 17.1 % (11.6-14.6)
[2022-08-06 16:49] LABS: CHLORIDE 105 mEq/L (98-107)
[2022-08-06] MEDS ORDERED: CEFTRIAXONE SODIUM 1 G/VIAL IM ONE (17:00)
[2022-08-06] MEDS ORDERED: CEFTRIAXONE 1 G PREMIX 50 ML IV NR (17:10)
[2022-08-06] MEDS ORDERED: AMOX1TAB16 MT (17:35)
[2022-08-06] MEDS ORDERED: ACET-2708 MT (17:35)
[2022-08-06] MEDS ORDERED: ACETAMINOPHEN 500MG TABLET PO ONE (18:00)
== END 2022-08-06 19:12 | disposition home or self-care (01) ==
LOC: ER 10:59
DX: K08.89 Other specified disorders of teeth and supporting structures (principal); F41.9 Anxiety disorder, unspecified; J45.909 Unspecified asthma, uncomplicated; E11.9 Type 2 diabetes mellitus without complications; E78.00 Pure hypercholesterolemia, unspecified; I10 Essential (primary) hypertension; M79.7 Fibromyalgia; Z79.899 Other long term (current) drug therapy
CPT/HCPCS: 36415; 80053; 85025; 96361; 96365; 96375; 99284; J0696; J2270; J7030; Z7610